=== PATIENT | female | born 1935 | race Caucasian/White ===

== ENCOUNTER → 2016-04-22 | Outpatient (REF) | payer MEDICARE ==
[2016-04-22 14:08] LABS: BASO % 0.5 % (0.0-1.0); EOS # 0.3 K/mm3 (0.0-0.50); EOS % 2.9 % (0.0-3.0); LARGE UNSTAINED CELL # 0.1 K/mm3 (0.0-0.4); LARGE UNSTAINED CELL % 1.3 % (0.0-4.0); LYMPH # 1.5 K/mm3 (1.5-4.5); LYMPH % 14.8 % (24.0-44.0); MEAN CORPUSCULAR HGB CONC 30.1 g/dl (32.0-36.5); MEAN CORPUSCULAR VOLUME 86.4 fl (80.0-96.0); MONO # 0.5 K/mm3 (0.0-0.8); MONO % 4.6 % (0.0-5.0); NEUTROPHILS # 7.6 K/mm3 (1.8-7.7); NEUTROPHILS % 75.9 % (36.0-66.0); PLATELET COUNT, AUTOMATED 250 k/mm3 (150-450); RED CELL DISTRIBUTION WIDTH 13.9 % (11.5-14.5)
[2016-04-22 14:24] LABS: ALBUMIN/GLOBULIN RATIO 1.08 (1.00-1.93); BILIRUBIN,TOTAL 0.3 MG/DL (0.2-1.0); CALCIUM LEVEL 10.2 MG/DL (8.8-10.2); CREATININE FOR GFR 0.96 MG/DL (0.55-1.02); GLOMERULAR FILTRATION RATE 59.5 (>32); POTASSIUM SERUM 4.4 MEQ/L (3.5-5.1); TOTAL PROTEIN 7.7 GM/DL (6.4-8.2)
== END ==
LOC: M LABNEURO 13:11
PROVIDERS: ATTEND Psychiatry & Neurology Neurology
DX: R51 Headache (principal)

== ENCOUNTER → 2017-02-10 | Outpatient (REF) | payer MEDICARE | LOC: M LAB REF 17:13 | PROVIDERS: ATTEND Ophthalmology | DX: H02.831 Dermatochalasis of right upper eyelid (principal); H02.834 Dermatochalasis of left upper eyelid ==

== ENCOUNTER 2017-05-26 13:06 | Day surgery (SDC) | payer MEDICARE ==
[~2017-05-26 13:06] MED LIST: LIDOCAINE 1% MDV 20ML VIAL As Ordered; PROPOFOL 200 MG/20 ML VIAL As Ordered
[2017-05-26] MEDS: NS 1,000 ML IV (13:30)
[2017-05-26] MEDS ORDERED: ACETAMINOPHEN TAB 650MG DOSE (2X325MG) As Ordered (14:51)
[2017-05-26] MEDS: ACETAMINOPHEN TAB 650MG DOSE (2X325MG) PO (15:02)
== END 2017-05-26 15:24 | disposition home or self-care (01) ==
LOC: M OPP 13:06
DX: K57.33 Diverticulitis of large intestine without perforation or abscess with bleeding (principal); K64.0 First degree hemorrhoids; K57.30 Diverticulosis of large intestine without perforation or abscess without bleeding; I10 Essential (primary) hypertension; E78.5 Hyperlipidemia, unspecified; E11.9 Type 2 diabetes mellitus without complications; K44.9 Diaphragmatic hernia without obstruction or gangrene; K21.9 Gastro-esophageal reflux disease without esophagitis; R12 Heartburn; M19.90 Unspecified osteoarthritis, unspecified site; R51 Headache; I63.9 Cerebral infarction, unspecified; Z96.651 Presence of right artificial knee joint; Z88.5 Allergy status to narcotic agent; Z79.82 Long term (current) use of aspirin; Z79.84 Long term (current) use of oral hypoglycemic drugs; Z79.899 Other long term (current) drug therapy; Z87.891 Personal history of nicotine dependence
CPT/HCPCS: 45378

== ENCOUNTER → 2023-09-27 | Outpatient (REF) ==
[~2023-09-27] MED LIST changes: +ACID1CAP PO; +AMLO1TAB25 PO; +ASPI81TA86 PO; +GLIP10TA6 PO; +JANU100T PO; -LIDOCAINE 1% MDV 20ML VIAL As Ordered; +MECL-86 PO; +MELO7.5T7 PO; +METF-415 PO; +OMEP1CAP73 PO; +PRAV40TA2 PO; -PROPOFOL 200 MG/20 ML VIAL As Ordered
[2023-09-27 11:21] LABS: HEMATOCRIT 34.9 % (36.0-47.0); HEMOGLOBIN 10.8 g/dl (12.0-15.5); MEAN CORPUSCULAR HGB CONC 30.9 g/dl (32.0-36.5); MEAN CORPUSCULAR VOLUME 93.8 fl (80.0-96.0); PLATELET COUNT, AUTOMATED 283 10^3/uL (150-450); RED BLOOD COUNT 3.72 10^6/uL (4.00-5.40); WHITE BLOOD COUNT 11.7 10^3/uL (4.0-10.0)
[2023-09-27 11:50] LABS: CALCIUM LEVEL 10.4 MG/DL (8.3-10.6); CREATININE FOR GFR 1.53 MG/DL (0.55-1.30); GLOMERULAR FILTRATION RATE 34.2 (>32); POTASSIUM SERUM 4.6 MMOL/L (3.5-5.1)
== END ==
PROVIDERS: ATTEND Physician Assistant
DX: I10 Essential (primary) hypertension (principal)

== ENCOUNTER → 2023-09-28 | Outpatient (REF) ==
[2023-09-28 18:21] LABS: BASO # 0.1 10^3/uL (0.0-0.2); BASO % 0.9 % (0.0-1.0); EOS # 0.3 10^3/uL (0.0-0.5); EOS % 2.4 % (0.0-3.0); HEMATOCRIT 32.4 % (36.0-47.0); HEMOGLOBIN 9.8 g/dl (12.0-15.5); LYMPH # 1.4 10^3/uL (1.5-5.0); LYMPH % 12.3 % (24.0-44.0); MEAN CORPUSCULAR HEMOGLOBIN 28.7 pg (27.0-33.0); MEAN CORPUSCULAR HGB CONC 30.2 g/dl (32.0-36.5); MONO # 0.9 10^3/uL (0.0-0.8); MONO % 8.3 % (2.0-8.0); NEUTROPHILS # 8.6 10^3/uL (1.5-8.5); NEUTROPHILS % 75.8 % (36.0-66.0); PLATELET COUNT, AUTOMATED 249 10^3/uL (150-450); RED BLOOD COUNT 3.41 10^6/uL (4.00-5.40); WHITE BLOOD COUNT 11.3 10^3/uL (4.0-10.0)
[2023-09-28 18:40] LABS: CREATININE FOR GFR 1.52 MG/DL (0.55-1.30); GLOMERULAR FILTRATION RATE 34.4 (>32); POTASSIUM SERUM 4.9 MMOL/L (3.5-5.1)
== END ==
PROVIDERS: ATTEND Physician Assistant
DX: R06.02 Shortness of breath (principal)

== ENCOUNTER → 2023-09-29 | Outpatient (REF) | payer MEDICARE | PROVIDERS: ATTEND Internal Medicine | DX: R05.9 Cough, unspecified (principal) ==

== ENCOUNTER → 2023-10-04 | Outpatient (REF) ==
[2023-10-04 15:27] LABS: HEMATOCRIT 32.7 % (36.0-47.0); HEMOGLOBIN 9.8 g/dl (12.0-15.5); MEAN CORPUSCULAR HEMOGLOBIN 28.4 pg (27.0-33.0); MEAN CORPUSCULAR VOLUME 94.8 fl (80.0-96.0); PLATELET COUNT, AUTOMATED 285 10^3/uL (150-450); RED BLOOD COUNT 3.45 10^6/uL (4.00-5.40); WHITE BLOOD COUNT 8.2 10^3/uL (4.0-10.0)
[2023-10-04 15:50] LABS: CALCIUM LEVEL 10.4 MG/DL (8.3-10.6); CREATININE FOR GFR 1.36 MG/DL (0.55-1.30); GLOMERULAR FILTRATION RATE 39.2 (>32); POTASSIUM SERUM 5.2 MMOL/L (3.5-5.1)
== END ==
PROVIDERS: ATTEND Physician Assistant
DX: I10 Essential (primary) hypertension (principal)

== ENCOUNTER → 2023-10-11 | Outpatient (REF) ==
[2023-10-11 11:12] LABS: APPEARANCE, URINE HAZY (CLEAR); BACTERIA, URINE AUTO NEGATIVE (NEGATIVE); BILIRUBIN, URINE AUTO NEGATIVE (NEGATIVE); BLOOD, URINE BLOOD NEGATIVE (NEGATIVE); COLOR, URINE YELLOW (YELLOW); GLUCOSE, URINE (UA) AUTO NEGATIVE (NEGATIVE); KETONE, URINE AUTO NEGATIVE (NEGATIVE); LEUKOCYTE ESTERASE, URINE AUTO NEGATIVE (NEGATIVE); NITRITE, URINE AUTO NEGATIVE (NEGATIVE); PROTEIN, URINE AUTO 1+ mg/dL (NEGATIVE); RBC, URINE AUTO 1 /HPF (0-3); SPECIFIC GRAVITY URINE AUTO 1.013 (1.002-1.035); SQUAMOUS EPITHELIAL CELL UR AU 2 /HPF (0-6); UROBILINOGEN, URINE AUTO 0.2 mg/dL (0.0-2.0); WBC, URINE AUTO 2 /HPF (0-3)
[2023-10-11 11:26] LABS: HEMATOCRIT 30.4 % (36.0-47.0); HEMOGLOBIN 9.2 g/dl (12.0-15.5); MEAN CORPUSCULAR HEMOGLOBIN 28.8 pg (27.0-33.0); MEAN CORPUSCULAR HGB CONC 30.3 g/dl (32.0-36.5); PLATELET COUNT, AUTOMATED 365 10^3/uL (150-450); WHITE BLOOD COUNT 6.8 10^3/uL (4.0-10.0)
[2023-10-11 11:43] LABS: CREATININE FOR GFR 1.47 MG/DL (0.55-1.30); GLOMERULAR FILTRATION RATE 35.8 (>32)
== END ==
PROVIDERS: ATTEND Physician Assistant
DX: I10 Essential (primary) hypertension (principal); R82.998 Other abnormal findings in urine

== ENCOUNTER 2023-10-17 13:14 | Inpatient (IN) | payer MEDICARE ==
[~2023-10-17] VITALS: Ht 160 cm; Wt 51.8 kg
[2023-10-17] MEDS: fentaNYL 100 MCG/2 ML INJECTION IV PRN (14:30)
[2023-10-17 14:34] LABS: BASO # 0.1 10^3/uL (0.0-0.2); BASO % 0.5 % (0.0-1.0); EOS # 0.1 10^3/uL (0.0-0.5); HEMATOCRIT 28.8 % (36.0-47.0); HEMOGLOBIN 8.7 g/dl (12.0-15.5); LYMPH # 1.6 10^3/uL (1.5-5.0); LYMPH % 12.5 % (24.0-44.0); MEAN CORPUSCULAR HEMOGLOBIN 28.8 pg (27.0-33.0); MEAN CORPUSCULAR HGB CONC 30.2 g/dl (32.0-36.5); MEAN CORPUSCULAR VOLUME 95.4 fl (80.0-96.0); MONO # 0.8 10^3/uL (0.0-0.8); MONO % 6.7 % (2.0-8.0); NEUTROPHILS # 9.7 10^3/uL (1.5-8.5); NEUTROPHILS % 78.7 % (36.0-66.0); PLATELET COUNT, AUTOMATED 354 10^3/uL (150-450); RED BLOOD COUNT 3.02 10^6/uL (4.00-5.40); WHITE BLOOD COUNT 12.4 10^3/uL (4.0-10.0)
[2023-10-17 14:49] LABS: INR 1.15; PARTIAL THROMBOPLASTIN TIME 25.2 SECONDS (24.8-34.2); PROTHROMBIN TIME 14.4 SECONDS (12.5-14.5)
[2023-10-17] MEDS: ONDANSETRON 4MG 2ML VIAL IV ONE (15:02)
[2023-10-17 15:03] LABS: LIPASE 110 U/L (12-53)
[2023-10-17 15:04] LABS: AMYLASE 112 U/L (30-118)
[2023-10-17 15:05] LABS: ALBUMIN 3.2 G/DL (3.2-5.2); ALKALINE PHOSPHATASE 99 U/L (46-116); ALT/SGPT 14 U/L (7.0-40); AST/SGOT 12 U/L (<34); BILIRUBIN,DIRECT < 0.1 MG/DL (<0.4); BILIRUBIN,TOTAL 0.2 MG/DL (0.3-1.2); BLOOD UREA NITROGEN 53 MG/DL (9-23); CALCIUM LEVEL 10.6 MG/DL (8.3-10.6); CARBON DIOXIDE LEVEL 25 MMOL/L (20-31); CHLORIDE LEVEL 107 MMOL/L (98-107); CK-MB VALUE MASS 1.3 NG/ML (<3.6); CPK CREATINE PHOSPHOKINASE 25 U/L (34-145); CREATININE FOR GFR 1.48 MG/DL (0.55-1.30); GLOMERULAR FILTRATION RATE 35.5 (>32); GLUCOSE, FASTING 135 MG/DL (74-106); POTASSIUM SERUM 4.8 MMOL/L (3.5-5.1); SODIUM LEVEL 137 MMOL/L (136-145); TOTAL PROTEIN 6.3 G/DL (5.7-8.2)
[2023-10-17] MEDS ORDERED: GLUCOSE 4 GM CHEW PO PRN (16:35)
[2023-10-17] MEDS ORDERED: DEXTROSE 50% 50ML SYRINGE IV PRN (16:35)
[2023-10-17] MEDS ORDERED: GLUCAGON INJ 1MG VIAL SC PRN (16:35)
[2023-10-17] MEDS ORDERED: ACETAMINOPHEN 500 MG TAB PO SCH (18:00)
[2023-10-17] MEDS ORDERED: PROB250C PO (18:34)
[2023-10-17] MEDS ORDERED: LIDO1PAD TOP (18:52)
[2023-10-17] MEDS ORDERED: CLOP75TA2 PO (18:52)
[2023-10-17] MEDS ORDERED: LEXA5TAB13 PO (18:52)
[2023-10-17] MEDS ORDERED: METO1TAB32 PO (18:52)
[2023-10-17] MEDS ORDERED: BISA10SU PR (18:52)
[2023-10-17] MEDS ORDERED: MILK400S12 PO (18:52)
[2023-10-17] MEDS ORDERED: CALC500T60 PO (18:52)
[2023-10-17] MEDS ORDERED: FLEEENE12 PR (18:52)
[2023-10-17] MEDS ORDERED: NOVOINJ3 SQ (18:52)
[2023-10-17] MEDS ORDERED: PANT-23 PO (18:52)
[2023-10-17] MEDS ORDERED: MAGN400T2 PO (18:52)
[2023-10-17] MEDS ORDERED: ISOS1TAB36 PO (18:52)
[2023-10-17] MEDS ORDERED: ECOT81TA5 PO (18:52)
[2023-10-17] MEDS ORDERED: ACET1TAB55 PO (18:52)
[2023-10-17] MEDS ORDERED: GLUC1KIT IM (18:52)
[2023-10-17] MEDS ORDERED: HOME MED LIST COMPLETE! XX SCH (18:55)
[2023-10-17] MEDS: INSULIN LISPRO (NovoLOG) PER UNIT SC SCH ×2 (19:29→21:00)
[2023-10-17] MEDS: ACETAMINOPHEN 500 MG TAB PO ONE (19:30)
[2023-10-17] MEDS: PRAVASTATIN 20 MG TAB PO SCH (21:24)
[2023-10-17] MEDS: MECLIZINE 25 MG TABLET PO SCH (21:24)
[2023-10-17] MEDS: traMADol 50 MG TAB PO PRN (21:25)
[2023-10-18] MEDS: ACETAMINOPHEN 500 MG TAB PO SCH
[2023-10-18] MEDS: ASPIRIN 81MG CHEW TABLET PO SCH (08:28)
[2023-10-18] MEDS: traMADol 50 MG TAB PO PRN (08:29)
[2023-10-18] MEDS: OMEPRAZOLE 20MG CAP PO SCH (08:29)
[2023-10-18 08:30] VITALS: BP 144/66
[2023-10-18] MEDS ORDERED: ACET-683 PO (13:41)
[2023-10-18] MEDS ORDERED: TRAM50TA2 PO (13:41)
[2023-10-18] MEDS ORDERED: traMADol 50 MG TAB PO ONE (14:00)
[2023-10-18 14:26] VITALS: BP 118/56; TEMP 97.5; O2SAT 91
== END 2023-10-18 14:35 | disposition home or self-care (01) | DRG 93 ==
LOC: M ED 13:14 → EDBD 13:14 → M ED INP 16:25
PROVIDERS: ADMIT General Practice; ATTEND General Practice
DX: R29.6 Repeated falls (principal); Z66 Do not resuscitate; E11.9 Type 2 diabetes mellitus without complications; I10 Essential (primary) hypertension; E78.00 Pure hypercholesterolemia, unspecified; Z88.5 Allergy status to narcotic agent; Z91.013 Allergy to seafood; Z96.651 Presence of right artificial knee joint; Z79.84 Long term (current) use of oral hypoglycemic drugs; Z79.01 Long term (current) use of anticoagulants; Z79.899 Other long term (current) drug therapy; S70.02XA Contusion of left hip, initial encounter; S40.022A Contusion of left upper arm, initial encounter; S00.83XA Contusion of other part of head, initial encounter; W19.XXXA Unspecified fall, initial encounter; Y92.9 Unspecified place or not applicable; Y93.9 Activity, unspecified; Z86.73 Personal history of transient ischemic attack (TIA), and cerebral infarction without residual deficits

== ENCOUNTER → 2023-10-25 | Outpatient (REF) | payer MEDICARE ==
[~2023-10-25] MED LIST changes: +ACET-683 PO; +ACET1TAB55 PO; +BISA10SU PR; +CALC500T60 PO; +CLOP75TA2 PO; +ECOT81TA5 PO; +FLEEENE12 PR; +GLUC1KIT IM; +ISOS1TAB36 PO; +LEXA5TAB13 PO; +LIDO1PAD TOP; +MAGN400T2 PO; +METO1TAB32 PO; +MILK400S12 PO; +NOVOINJ3 SQ; +PANT-23 PO; +PROB250C PO; +TRAM50TA2 PO
== END ==
LOC: M SOG 09:00 → EDSTATUS 10-26 07:32
PROVIDERS: ATTEND Physician Assistant
DX: M25.512 Pain in left shoulder (principal); M25.522 Pain in left elbow; M25.532 Pain in left wrist

== ENCOUNTER → 2023-10-28 | Outpatient (REF) | PROVIDERS: ATTEND Internal Medicine | DX: M85.872 Other specified disorders of bone density and structure, left ankle and foot (principal) ==

== ENCOUNTER → 2023-11-01 | Outpatient (REF) ==
[~2023-11-01] MED LIST changes: +ACET-907 PO; +AMLO2.5T3 PO; +ANTI2TAB16 PO; +CEPH500C PO; +GLIP-162 PO; +NOVOINJ3 SC; -NOVOINJ3 SQ; +ONDA-83 PO; +TUMS500C PO
[2023-11-01 12:18] LABS: HEMATOCRIT 29.6 % (36.0-47.0); HEMOGLOBIN 8.4 g/dl (12.0-15.5); MEAN CORPUSCULAR HEMOGLOBIN 27.2 pg (27.0-33.0); MEAN CORPUSCULAR HGB CONC 28.4 g/dl (32.0-36.5); MEAN CORPUSCULAR VOLUME 95.8 fl (80.0-96.0); PLATELET COUNT, AUTOMATED 446 10^3/uL (150-450); RED BLOOD COUNT 3.09 10^6/uL (4.00-5.40); WHITE BLOOD COUNT 9.9 10^3/uL (4.0-10.0)
[2023-11-01 12:54] LABS: FERRITIN 114.3 NG/ML (7.3-270.7)
[2023-11-01 12:55] LABS: CALCIUM LEVEL 10.1 MG/DL (8.3-10.6); CREATININE FOR GFR 1.64 MG/DL (0.55-1.30); FOLATE 6.6 NG/ML (>5.4); GLOMERULAR FILTRATION RATE 31.5 (>32); PERCENT SATURATION 11.2 % (13.2-45.0); POTASSIUM SERUM 4.3 MMOL/L (3.5-5.1)
== END ==
PROVIDERS: ATTEND Internal Medicine
DX: D64.9 Anemia, unspecified (principal)

== ENCOUNTER 2023-11-02 21:15 | Observation (INO) | payer MEDICARE, MEDICAID ==
[~2023-11-02] VITALS: Ht 160 cm; Wt 56.8 kg
[~2023-11-02 21:15] MED LIST changes: -ACET-907 PO; -AMLO2.5T3 PO; -ANTI2TAB16 PO; -CEPH500C PO; -GLIP-162 PO; -ONDA-83 PO; -TUMS500C PO
[2023-11-02 21:56] LABS: BASO # 0.1 10^3/uL (0.0-0.2); BASO % 0.6 % (0.0-1.0); EOS # 0.2 10^3/uL (0.0-0.5); EOS % 1.7 % (0.0-3.0); HEMATOCRIT 25.3 % (36.0-47.0); HEMOGLOBIN 7.7 g/dl (12.0-15.5); LYMPH # 1.6 10^3/uL (1.5-5.0); LYMPH % 17.5 % (24.0-44.0); MEAN CORPUSCULAR HEMOGLOBIN 28.6 pg (27.0-33.0); MEAN CORPUSCULAR HGB CONC 30.4 g/dl (32.0-36.5); MEAN CORPUSCULAR VOLUME 94.1 fl (80.0-96.0); MONO # 0.7 10^3/uL (0.0-0.8); MONO % 7.2 % (2.0-8.0); NEUTROPHILS # 6.6 10^3/uL (1.5-8.5); NEUTROPHILS % 72.4 % (36.0-66.0); PLATELET COUNT, AUTOMATED 385 10^3/uL (150-450); RED BLOOD COUNT 2.69 10^6/uL (4.00-5.40)
[2023-11-02 22:13] LABS: INR 1.16; PARTIAL THROMBOPLASTIN TIME 24.9 SECONDS (24.8-34.2); PROTHROMBIN TIME 14.4 SECONDS (12.5-14.5)
[2023-11-02 22:26] LABS: ALKALINE PHOSPHATASE 92 U/L (46-116); ALT/SGPT 12 U/L (7.0-40); AST/SGOT 13 U/L (<34); BILIRUBIN,DIRECT < 0.1 MG/DL (<0.4); BILIRUBIN,TOTAL 0.2 MG/DL (0.3-1.2); BLOOD UREA NITROGEN 49 MG/DL (9-23); CARBON DIOXIDE LEVEL 25 MMOL/L (20-31); CHLORIDE LEVEL 104 MMOL/L (98-107); CREATININE FOR GFR 1.59 MG/DL (0.55-1.30); GLOMERULAR FILTRATION RATE 32.6 (>32); GLUCOSE, FASTING 119 MG/DL (74-106); POTASSIUM SERUM 4.7 MMOL/L (3.5-5.1); SODIUM LEVEL 134 MMOL/L (136-145); TOTAL PROTEIN 6.3 G/DL (5.7-8.2)
[2023-11-02] MEDS: PANTOPRAZOLE 40MG VIAL IV ONE (22:33)
[2023-11-03] VITALS (10 sets, daily range): BP systolic 134–151; BP diastolic 61–76; TEMP 97–98.1; O2SAT 92–97
[2023-11-03] MEDS ORDERED: DEXTROSE 50% 50ML SYRINGE IV PRN
[2023-11-03] MEDS ORDERED: MAALOX 30 ML SUSP *UDC PO PRN
[2023-11-03] MEDS ORDERED: GLUCOSE 4 GM CHEW PO PRN
[2023-11-03] MEDS ORDERED: MOM 30ML SUSPENSION UDC PO PRN
[2023-11-03] MEDS ORDERED: GLUCAGON INJ 1MG VIAL SC PRN
[2023-11-03] MEDS ORDERED: TUMS500C PO (00:20)
[2023-11-03] MEDS ORDERED: TRAM50TA2 PO (00:20)
[2023-11-03] MEDS ORDERED: ONDA-83 PO (00:20)
[2023-11-03] MEDS ORDERED: ANTI2TAB16 PO (00:20)
[2023-11-03] MEDS ORDERED: AMLO2.5T3 PO (00:20)
[2023-11-03] MEDS ORDERED: GLIP-162 PO (00:20)
[2023-11-03] MEDS ORDERED: CEPH500C PO (00:20)
[2023-11-03] MEDS ORDERED: ACET-907 PO (00:24)
[2023-11-03] MEDS ORDERED: HOME MED LIST COMPLETE! XX SCH (00:30)
[2023-11-03 00:50] LABS: MAGNESIUM LEVEL 1.6 MG/DL (1.8-2.4)
[2023-11-03 00:55] LABS: THYROID STIMULATING HORMONE 2.073 uIU/ML (0.55-4.78)
[2023-11-03] MEDS: MAG SULF 1GM/100ML (MAG RUN) 1 GM in IV 1 EA IV ONE (03:51)
[2023-11-03 04:30] LABS: BASO # 0.1 10^3/uL (0.0-0.2); BASO % 0.8 % (0.0-1.0); EOS # 0.2 10^3/uL (0.0-0.5); EOS % 2.4 % (0.0-3.0); HEMATOCRIT 34.2 % (36.0-47.0); LYMPH # 2.1 10^3/uL (1.5-5.0); LYMPH % 20.7 % (24.0-44.0); MEAN CORPUSCULAR VOLUME 90.5 fl (80.0-96.0); MONO # 0.8 10^3/uL (0.0-0.8); NEUTROPHILS # 6.7 10^3/uL (1.5-8.5); NEUTROPHILS % 67.7 % (36.0-66.0); PLATELET COUNT, AUTOMATED 350 10^3/uL (150-450); RED BLOOD COUNT 3.78 10^6/uL (4.00-5.40); WHITE BLOOD COUNT 9.9 10^3/uL (4.0-10.0)
[2023-11-03 04:45] LABS: INR 1.15; PARTIAL THROMBOPLASTIN TIME 26.3 SECONDS (24.8-34.2); PROTHROMBIN TIME 14.3 SECONDS (12.5-14.5)
[2023-11-03 04:54] LABS: HEMOGLOBIN 10.6 g/dl (12.0-15.5)
[2023-11-03 05:02] LABS: ALBUMIN 2.8 G/DL (3.2-5.2); ALKALINE PHOSPHATASE 91 U/L (46-116); ALT/SGPT < 9 U/L (7.0-40); AST/SGOT 9 U/L (<34); BILIRUBIN,TOTAL 0.8 MG/DL (0.3-1.2); BLOOD UREA NITROGEN 44 MG/DL (9-23); CALCIUM LEVEL 10.5 MG/DL (8.3-10.6); CARBON DIOXIDE LEVEL 24 MMOL/L (20-31); CHLORIDE LEVEL 109 MMOL/L (98-107); CREATININE FOR GFR 1.53 MG/DL (0.55-1.30); GLOMERULAR FILTRATION RATE 34.1 (>32); GLUCOSE, FASTING 82 MG/DL (74-106); MAGNESIUM LEVEL 1.8 MG/DL (1.8-2.4); POTASSIUM SERUM 4.7 MMOL/L (3.5-5.1); SODIUM LEVEL 139 MMOL/L (136-145)
[2023-11-03] MEDS: INSULIN LISPRO (NovoLOG) PER UNIT SC SCH ×2 (07:29→20:42)
[2023-11-03] MEDS: PANTOPRAZOLE 40MG VIAL IV SCH (07:49)
[2023-11-03] MEDS: DOCUSATE SODIUM 100MG CAPSULE PO SCH (07:49)
[2023-11-03] MEDS: ACETAMINOPHEN TAB 650MG DOSE (2X325MG) PO PRN (12:33)
[2023-11-03] MEDS ORDERED: BISACODYL 10MG SUPP PR PRN (12:40)
[2023-11-03] MEDS ORDERED: CALCIUM CARBONATE 500 MG CHEW U/D PO PRN (12:40)
[2023-11-03] MEDS ORDERED: LOPERAMIDE 2 MG CAPLET PO PRN (12:40)
[2023-11-03 12:55] LABS: HEMATOCRIT 35.9 % (36.0-47.0); HEMOGLOBIN 11.1 g/dl (12.0-15.5)
[2023-11-03] MEDS: ESCITALOPRAM OXALATE 5MG TABLET (LEXAPRO) PO SCH (13:33)
[2023-11-03] MEDS: METOPROLOL SUCC *XL* 25MG TAB (TopROL *XL*) PO SCH (13:36)
[2023-11-03] MEDS: ISOSORBIDE MON. (IMDUR) 60MG XR TAB PO SCH (13:38)
[2023-11-03] MEDS: traMADol 50 MG TAB PO PRN (14:16)
[2023-11-03] MEDS: ONDANSETRON 4MG TAB PO SCH (16:00)
[2023-11-03] MEDS: MAGNESIUM OXIDE 400MG TAB (MAG-OX) PO SCH (20:41)
[2023-11-03] MEDS: PRAVASTATIN 20 MG TAB PO SCH (20:41)
[2023-11-03] MEDS: CEPHALEXIN 500 MG CAP PO SCH (20:42)
[2023-11-04 04:35] VITALS: BP 143/66; TEMP 97.7; O2SAT 92
[2023-11-04 08:39] VITALS: BP 145/63
[2023-11-04] MEDS ORDERED: LIDOCAINE 5% (LIDODERM) PATCH TOP SCH (09:00)
== END 2023-11-04 13:30 ==
LOC: M ED 21:15 → INTOOBSV 23:28 → M ED INP 23:28 → M MS5PR 11-03 10:05
PROVIDERS: ADMIT Family Medicine; ATTEND Student in an Organized Health Care Education/Training Program
DX: D62 Acute posthemorrhagic anemia (principal); K92.2 Gastrointestinal hemorrhage, unspecified; D58.2 Other hemoglobinopathies; S62.102D Fracture of unspecified carpal bone, left wrist, subsequent encounter for fracture with routine healing; M79.602 Pain in left arm; W19.XXXD Unspecified fall, subsequent encounter; X58.XXXD Exposure to other specified factors, subsequent encounter; R94.31 Abnormal electrocardiogram [ECG] [EKG]; R54 Age-related physical debility; I25.10 Atherosclerotic heart disease of native coronary artery without angina pectoris; I10 Essential (primary) hypertension; E78.5 Hyperlipidemia, unspecified; E11.9 Type 2 diabetes mellitus without complications; K57.92 Diverticulitis of intestine, part unspecified, without perforation or abscess without bleeding; Z86.73 Personal history of transient ischemic attack (TIA), and cerebral infarction without residual deficits; I65.29 Occlusion and stenosis of unspecified carotid artery; Z87.81 Personal history of (healed) traumatic fracture; Z96.651 Presence of right artificial knee joint; Z98.890 Other specified postprocedural states; Z87.891 Personal history of nicotine dependence; Z79.899 Other long term (current) drug therapy; Z79.82 Long term (current) use of aspirin; Z79.2 Long term (current) use of antibiotics; Z79.02 Long term (current) use of antithrombotics/antiplatelets; Z79.4 Long term (current) use of insulin; Z88.5 Allergy status to narcotic agent; Z88.8 Allergy status to other drugs, medicaments and biological substances; Z91.013 Allergy to seafood
CPT/HCPCS: 36415; 36430; 80048; 80053; 80076; 82140; 83735; 84443; 85014; 85018; 85025; 85610; 85730; 86850; 86900; 86901; 86920; 87426; 93005; 93041; 94760; 96365; 96375; 96376; 97161; 97530; 99285; G0378; J1815; J2470; J3475; P9016

== ENCOUNTER → 2023-11-03 | Outpatient (REF) ==
[~2023-11-03] MED LIST changes: +ACET-907 PO; +AMLO2.5T3 PO; +ANTI2TAB16 PO; +CEPH500C PO; +GLIP-162 PO; +ONDA-83 PO; +TUMS500C PO
== END ==
PROVIDERS: ATTEND Physician Assistant
DX: E86.0 Dehydration (principal); Z53.8 Procedure and treatment not carried out for other reasons

== ENCOUNTER → 2023-11-05 | Outpatient (REF) ==
[~2023-11-05] MED LIST changes: +BACI1CAP PO; +CEFD300CAP PO; +CIPR-250 PO
== END ==
PROVIDERS: ATTEND Internal Medicine
DX: K92.2 Gastrointestinal hemorrhage, unspecified (principal); Z53.8 Procedure and treatment not carried out for other reasons

== ENCOUNTER → 2023-11-08 | Outpatient (REF) ==
[2023-11-08 11:37] LABS: HEMOGLOBIN 11.4 g/dl (12.0-15.5); MEAN CORPUSCULAR HEMOGLOBIN 27.7 pg (27.0-33.0); MEAN CORPUSCULAR VOLUME 92.5 fl (80.0-96.0); PLATELET COUNT, AUTOMATED 327 10^3/uL (150-450); RED BLOOD COUNT 4.11 10^6/uL (4.00-5.40); WHITE BLOOD COUNT 6.6 10^3/uL (4.0-10.0)
[2023-11-08 11:56] LABS: CALCIUM LEVEL 10.6 MG/DL (8.3-10.6); CREATININE FOR GFR 1.6 MG/DL (0.55-1.30); GLOMERULAR FILTRATION RATE 32.4 (>32); POTASSIUM SERUM 4.6 MMOL/L (3.5-5.1)
== END ==
PROVIDERS: ATTEND Internal Medicine
DX: K92.2 Gastrointestinal hemorrhage, unspecified (principal)

== ENCOUNTER 2023-11-12 09:15 | Inpatient (IN) | payer MEDICARE ==
[~2023-11-12] VITALS: Ht 157.5 cm; Wt 61.8 kg
[2023-11-12] MEDS: cloNIDine HCL 0.1 MG/24 HR PATCH TOP SCH (09:00)
[~2023-11-12 09:15] MED LIST changes: -BACI1CAP PO; -CEFD300CAP PO; -CIPR-250 PO
[2023-11-12] MEDS ORDERED: CIPR-250 PO (10:00)
[2023-11-12] MEDS ORDERED: HOME MED LIST COMPLETE! XX SCH (10:05)
[2023-11-12 10:21] LABS: VENOUS BASE EXCESS -1.7 (-2.0-2.0); VENOUS O2 SATURATION 99.3 % (60.0-80.0); VENOUS PARTIAL PRESSURE O2 211.6 mmHg (30.0-50.0); VENOUS PH 7.316 UNITS (7.330-7.430); VENOUS STANDARD HCO3 23.1 MMOL/L; VENOUS TOTAL CO2 26.5 MMOL/L (24.0-28.0)
[2023-11-12] MEDS ORDERED: ISOVUE-370 76% 100ML VIAL As Ordered ONE (10:21)
[2023-11-12 10:27] LABS: BASO % 0.3 % (0.0-1.0); HEMATOCRIT 40.4 % (36.0-47.0); HEMOGLOBIN 12.3 g/dl (12.0-15.5); LYMPH # 0.4 10^3/uL (1.5-5.0); MEAN CORPUSCULAR HEMOGLOBIN 27.6 pg (27.0-33.0); MEAN CORPUSCULAR HGB CONC 30.4 g/dl (32.0-36.5); MEAN CORPUSCULAR VOLUME 90.8 fl (80.0-96.0); MONO # 0.2 10^3/uL (0.0-0.8); MONO % 2.4 % (2.0-8.0); NEUTROPHILS # 5.6 10^3/uL (1.5-8.5); NEUTROPHILS % 89.8 % (36.0-66.0); PLATELET COUNT, AUTOMATED 292 10^3/uL (150-450); RED BLOOD COUNT 4.45 10^6/uL (4.00-5.40); WHITE BLOOD COUNT 6.3 10^3/uL (4.0-10.0)
[2023-11-12 11:06] LABS: OSMOLALITY SERUM 308 MOSM/KG (280-301)
[2023-11-12 11:08] LABS: ALBUMIN 3.3 G/DL (3.2-5.2); ALKALINE PHOSPHATASE 103 U/L (46-116); ALT/SGPT 11 U/L (7.0-40); AST/SGOT 15 U/L (<34); BILIRUBIN,DIRECT < 0.1 MG/DL (<0.4); BILIRUBIN,TOTAL 0.2 MG/DL (0.3-1.2); BLOOD UREA NITROGEN 33 MG/DL (9-23); CALCIUM LEVEL 10.2 MG/DL (8.3-10.6); CARBON DIOXIDE LEVEL 27 MMOL/L (20-31); CHLORIDE LEVEL 104 MMOL/L (98-107); CREATININE FOR GFR 1.47 MG/DL (0.55-1.30); GLOMERULAR FILTRATION RATE 35.7 (>32); GLUCOSE, FASTING 181 MG/DL (74-106); POTASSIUM SERUM 4.8 MMOL/L (3.5-5.1); SODIUM LEVEL 135 MMOL/L (136-145)
[2023-11-12 11:11] LABS: THYROID STIMULATING HORMONE 0.954 uIU/ML (0.55-4.78)
[2023-11-12] MEDS: METOPROLOL 5 MG/5 ML VIAL IV STA (13:01)
[2023-11-12] MEDS: LACTULOSE 20GM/30ML SYRUP UDC PR ONE (13:19)
[2023-11-12 14:27] LABS: HEMOGLOBIN A1c 5.4 % (4.0-6.0)
[2023-11-12 14:28] LABS: C REACTIVE PROTEIN QUANTITATIV 3.9 MG/DL (<1.0)
[2023-11-12 14:32] LABS: FREE THYROXINE INDEX 3.9 % (1.3-4.8); T UPTAKE 41.9 % (22.5-37.0); THYROID STIMULATING HORMONE 0.889 uIU/ML (0.55-4.78); THYROXINE (T4) 9.2 UG/DL (4.5-10.9)
[2023-11-12] MEDS: NITROGLYCERIN 2% OINT 1 GM *U/D* PKT TOP ONE (14:38)
[2023-11-12] MEDS: ONDANSETRON 4MG 2ML VIAL IV SCH (14:38)
[2023-11-12 14:41] LABS: PROCALCITONIN 0.27 ng/ml
[2023-11-12 15:15] VITALS: BP 154/66; TEMP 98.1; O2SAT 94
[2023-11-12] MEDS ORDERED: CALCIUM CARBONATE 500 MG CHEW U/D PO PRN (15:15)
[2023-11-12] MEDS: CLOPIDOGREL 75 MG TAB PO SCH (15:50)
[2023-11-12] MEDS: ASPIRIN 81MG CHEW TABLET PO SCH (15:50)
[2023-11-12] MEDS: ISOSORBIDE MON. (IMDUR) 60MG XR TAB PO SCH (15:50)
[2023-11-12] MEDS: CEFDINIR 300 MG CAP (OMNICEF) PO SCH (18:17)
[2023-11-12] MEDS: SUCRALFATE SUSP 1GM/10ML UD PO SCH (18:18)
[2023-11-12 20:00] VITALS: BP 130/67; TEMP 97.9; O2SAT 94
[2023-11-12] MEDS: PANTOPRAZOLE 40MG TAB (PROTONIX) PO SCH (20:53)
[2023-11-13] MEDS ORDERED: RAMELTEON 8 MG TAB (ROZEREM) PO PRN (00:40)
[2023-11-13] MEDS: HALOPERIDOL LACTATE 5MG/ML VIAL IM ONE (01:07)
[2023-11-13 04:00] VITALS: BP 116/56; TEMP 97.7; O2SAT 97
[2023-11-13 07:35] LABS: BASO % 0.4 % (0.0-1.0); EOS % 0.1 % (0.0-3.0); LYMPH % 12.4 % (24.0-44.0); MEAN CORPUSCULAR HEMOGLOBIN 27.8 pg (27.0-33.0); MEAN CORPUSCULAR HGB CONC 30.7 g/dl (32.0-36.5); MEAN CORPUSCULAR VOLUME 90.6 fl (80.0-96.0); MONO # 0.5 10^3/uL (0.0-0.8); MONO % 6.4 % (2.0-8.0); NEUTROPHILS # 6.6 10^3/uL (1.5-8.5); NEUTROPHILS % 80.2 % (36.0-66.0); PLATELET COUNT, AUTOMATED 246 10^3/uL (150-450); RED BLOOD COUNT 3.31 10^6/uL (4.00-5.40); WHITE BLOOD COUNT 8.2 10^3/uL (4.0-10.0)
[2023-11-13 07:39] LABS: HEMOGLOBIN 9.2 g/dl (12.0-15.5)
[2023-11-13 07:54] LABS: CALCIUM LEVEL 9.7 MG/DL (8.3-10.6); CREATININE FOR GFR 1.63 MG/DL (0.55-1.30); GLOMERULAR FILTRATION RATE 31.7 (>32); POTASSIUM SERUM 4.7 MMOL/L (3.5-5.1)
[2023-11-13] MEDS: METOPROLOL SUCC *XL* 25MG TAB (TopROL *XL*) PO SCH (08:08)
[2023-11-13] MEDS: FENOFIBRATE 145MG TABLET (TRICOR) PO SCH (08:08)
[2023-11-13] MEDS: ONDANSETRON 4MG 2ML VIAL IV PRN (08:12)
[2023-11-13 12:29] VITALS: BP 100/44; TEMP 97.7; O2SAT 98
[2023-11-13 20:00] VITALS: BP 124/51; TEMP 97.9
[2023-11-14 04:00] VITALS: BP 134/60; TEMP 97.3; O2SAT 95
[2023-11-14 06:56] LABS: BASO # 0.1 10^3/uL (0.0-0.2); BASO % 1.4 % (0.0-1.0); EOS # 0.1 10^3/uL (0.0-0.5); EOS % 2.2 % (0.0-3.0); HEMATOCRIT 34.5 % (36.0-47.0); HEMOGLOBIN 10.5 g/dl (12.0-15.5); LYMPH # 1.1 10^3/uL (1.5-5.0); LYMPH % 18.5 % (24.0-44.0); MEAN CORPUSCULAR HEMOGLOBIN 27.7 pg (27.0-33.0); MEAN CORPUSCULAR HGB CONC 30.4 g/dl (32.0-36.5); MONO # 0.6 10^3/uL (0.0-0.8); MONO % 10.3 % (2.0-8.0); NEUTROPHILS # 3.9 10^3/uL (1.5-8.5); NEUTROPHILS % 67.3 % (36.0-66.0); PLATELET COUNT, AUTOMATED 219 10^3/uL (150-450); RED BLOOD COUNT 3.79 10^6/uL (4.00-5.40); WHITE BLOOD COUNT 5.9 10^3/uL (4.0-10.0)
[2023-11-14] MEDS ORDERED: BACI1CAP PO (07:08)
[2023-11-14] MEDS ORDERED: CEFD300CAP PO (07:08)
[2023-11-14 07:20] LABS: CREATININE FOR GFR 1.75 MG/DL (0.55-1.30); GLOMERULAR FILTRATION RATE 29.2 (>32); POTASSIUM SERUM 4.4 MMOL/L (3.5-5.1)
[2023-11-14 12:42] VITALS: BP 125/54; TEMP 97.5; O2SAT 97
[2023-11-14] MEDS: ACETAMINOPHEN 500 MG TAB PO ONE (14:31)
[2023-11-14 20:24] VITALS: BP 116/61; TEMP 97.7; O2SAT 95
[2023-11-14] MEDS: ACETAMINOPHEN TAB 650MG DOSE (2X325MG) PO PRN (22:23)
[2023-11-15 03:51] VITALS: BP 126/36; TEMP 97.5; O2SAT 96
[2023-11-15 06:28] LABS: BASO # 0.1 10^3/uL (0.0-0.2); BASO % 1.5 % (0.0-1.0); EOS # 0.3 10^3/uL (0.0-0.5); EOS % 4.8 % (0.0-3.0); HEMATOCRIT 35.5 % (36.0-47.0); HEMOGLOBIN 10.9 g/dl (12.0-15.5); LYMPH # 1.4 10^3/uL (1.5-5.0); LYMPH % 23.5 % (24.0-44.0); MEAN CORPUSCULAR HEMOGLOBIN 27.5 pg (27.0-33.0); MEAN CORPUSCULAR HGB CONC 30.7 g/dl (32.0-36.5); MEAN CORPUSCULAR VOLUME 89.6 fl (80.0-96.0); MONO # 0.6 10^3/uL (0.0-0.8); MONO % 9.5 % (2.0-8.0); NEUTROPHILS # 3.6 10^3/uL (1.5-8.5); NEUTROPHILS % 60.4 % (36.0-66.0); PLATELET COUNT, AUTOMATED 253 10^3/uL (150-450); RED BLOOD COUNT 3.96 10^6/uL (4.00-5.40)
[2023-11-15 08:30] VITALS: O2SAT 87
[2023-11-15 08:40] VITALS: O2SAT 98
[2023-11-15 12:00] VITALS: BP 109/46; TEMP 95.6; O2SAT 98
[2023-11-15 20:12] VITALS: BP 136/56; TEMP 97.3; O2SAT 97
[2023-11-16 05:14] VITALS: BP 152/62; TEMP 97.7; O2SAT 90
[2023-11-16 05:55] LABS: BASO # 0.1 10^3/uL (0.0-0.2); BASO % 1.2 % (0.0-1.0); EOS # 0.4 10^3/uL (0.0-0.5); EOS % 7.1 % (0.0-3.0); HEMATOCRIT 40.2 % (36.0-47.0); HEMOGLOBIN 12.3 g/dl (12.0-15.5); LYMPH # 1.6 10^3/uL (1.5-5.0); LYMPH % 27.8 % (24.0-44.0); MEAN CORPUSCULAR HEMOGLOBIN 27.6 pg (27.0-33.0); MEAN CORPUSCULAR HGB CONC 30.6 g/dl (32.0-36.5); MEAN CORPUSCULAR VOLUME 90.1 fl (80.0-96.0); MONO # 0.5 10^3/uL (0.0-0.8); MONO % 8.1 % (2.0-8.0); NEUTROPHILS # 3.3 10^3/uL (1.5-8.5); NEUTROPHILS % 55.6 % (36.0-66.0); PLATELET COUNT, AUTOMATED 256 10^3/uL (150-450); RED BLOOD COUNT 4.46 10^6/uL (4.00-5.40); WHITE BLOOD COUNT 5.9 10^3/uL (4.0-10.0)
[2023-11-16 07:50] VITALS: BP 152/62
[2023-11-16 08:38] LABS: CALCIUM LEVEL 10.3 MG/DL (8.3-10.6); CREATININE FOR GFR 1.67 MG/DL (0.55-1.30); GLOMERULAR FILTRATION RATE 30.8 (>32); POTASSIUM SERUM 3.8 MMOL/L (3.5-5.1)
== END 2023-11-16 12:20 | DRG 441 ==
LOC: EDBD 09:15 → M ED 09:15 → M ED INP 12:31 → M MS5PR 15:10
PROVIDERS: ADMIT General Practice; ATTEND Family Medicine
DX: K76.82 Hepatic encephalopathy (principal); G93.41 Metabolic encephalopathy; J18.9 Pneumonia, unspecified organism; J98.11 Atelectasis; E87.1 Hypo-osmolality and hyponatremia; E72.20 Disorder of urea cycle metabolism, unspecified; J47.0 Bronchiectasis with acute lower respiratory infection; Z66 Do not resuscitate; N18.30 Chronic kidney disease, stage 3 unspecified; E11.22 Type 2 diabetes mellitus with diabetic chronic kidney disease; I12.9 Hypertensive chronic kidney disease with stage 1 through stage 4 chronic kidney disease, or unspecified chronic kidney disease; E78.00 Pure hypercholesterolemia, unspecified; I73.9 Peripheral vascular disease, unspecified; E11.51 Type 2 diabetes mellitus with diabetic peripheral angiopathy without gangrene; R26.89 Other abnormalities of gait and mobility; R29.6 Repeated falls; K44.9 Diaphragmatic hernia without obstruction or gangrene; I16.0 Hypertensive urgency; D64.9 Anemia, unspecified; Z86.73 Personal history of transient ischemic attack (TIA), and cerebral infarction without residual deficits; Z95.828 Presence of other vascular implants and grafts; Z79.82 Long term (current) use of aspirin; Z79.84 Long term (current) use of oral hypoglycemic drugs; Z79.4 Long term (current) use of insulin; Z79.899 Other long term (current) drug therapy; Z88.5 Allergy status to narcotic agent; Z88.8 Allergy status to other drugs, medicaments and biological substances; Z91.013 Allergy to seafood; Z11.52 Encounter for screening for COVID-19

== ENCOUNTER → 2023-11-15 | Outpatient (REF) ==
[~2023-11-15] MED LIST changes: +BACI1CAP PO; +CEFD300CAP PO; +CIPR-250 PO
== END ==
PROVIDERS: ATTEND Internal Medicine
DX: K92.2 Gastrointestinal hemorrhage, unspecified (principal); Z53.8 Procedure and treatment not carried out for other reasons

== ENCOUNTER → 2023-11-17 | Outpatient (REF) ==
[2023-11-17 09:01] LABS: HEMATOCRIT 38.5 % (36.0-47.0); HEMOGLOBIN 11.8 g/dl (12.0-15.5); MEAN CORPUSCULAR HEMOGLOBIN 27.4 pg (27.0-33.0); MEAN CORPUSCULAR HGB CONC 30.6 g/dl (32.0-36.5); MEAN CORPUSCULAR VOLUME 89.3 fl (80.0-96.0); PLATELET COUNT, AUTOMATED 310 10^3/uL (150-450); RED BLOOD COUNT 4.31 10^6/uL (4.00-5.40); WHITE BLOOD COUNT 9.6 10^3/uL (4.0-10.0)
[2023-11-17 09:26] LABS: CALCIUM LEVEL 10.7 MG/DL (8.3-10.6); CREATININE FOR GFR 1.47 MG/DL (0.55-1.30); GLOMERULAR FILTRATION RATE 35.7 (>32); POTASSIUM SERUM 4.1 MMOL/L (3.5-5.1)
[2023-11-17 18:50] LABS: ALBUMIN 3.2 G/DL (3.2-5.2); ALKALINE PHOSPHATASE 85 U/L (46-116); ALT/SGPT < 9 U/L (7.0-40); AST/SGOT 16 U/L (<34); BILIRUBIN,DIRECT < 0.1 MG/DL (<0.4); BILIRUBIN,TOTAL 0.2 MG/DL (0.3-1.2); TOTAL PROTEIN 6.5 G/DL (5.7-8.2)
== END ==
PROVIDERS: ATTEND Physician Assistant
DX: D64.9 Anemia, unspecified (principal)

== ENCOUNTER → 2023-11-22 | Outpatient (REF) ==
[2023-11-22 11:09] LABS: HEMOGLOBIN 11.4 g/dl (12.0-15.5); MEAN CORPUSCULAR HGB CONC 30.8 g/dl (32.0-36.5); MEAN CORPUSCULAR VOLUME 90.9 fl (80.0-96.0); PLATELET COUNT, AUTOMATED 310 10^3/uL (150-450); RED BLOOD COUNT 4.07 10^6/uL (4.00-5.40); WHITE BLOOD COUNT 7.9 10^3/uL (4.0-10.0)
[2023-11-22 11:28] LABS: CALCIUM LEVEL 10.3 MG/DL (8.3-10.6); CREATININE FOR GFR 1.54 MG/DL (0.55-1.30); GLOMERULAR FILTRATION RATE 33.8 (>32); POTASSIUM SERUM 4.2 MMOL/L (3.5-5.1)
== END ==
PROVIDERS: ATTEND Internal Medicine
DX: I10 Essential (primary) hypertension (principal)

== ENCOUNTER → 2023-11-25 | Outpatient (CLI) | payer MEDICARE | LOC: M SOG 07:56 | PROVIDERS: ATTEND Physician Assistant | DX: S52.322A Displaced transverse fracture of shaft of left radius, initial encounter for closed fracture (principal); M25.532 Pain in left wrist; M25.552 Pain in left hip; Y93.9 Activity, unspecified; Y92.9 Unspecified place or not applicable ==

== ENCOUNTER → 2023-11-29 | Outpatient (REF) ==
[2023-11-29 12:31] LABS: HEMATOCRIT 36.8 % (36.0-47.0); MEAN CORPUSCULAR HEMOGLOBIN 27.6 pg (27.0-33.0); MEAN CORPUSCULAR HGB CONC 29.9 g/dl (32.0-36.5); MEAN CORPUSCULAR VOLUME 92.2 fl (80.0-96.0); PLATELET COUNT, AUTOMATED 324 10^3/uL (150-450); RED BLOOD COUNT 3.99 10^6/uL (4.00-5.40); WHITE BLOOD COUNT 9.7 10^3/uL (4.0-10.0)
[2023-11-29 12:57] LABS: CALCIUM LEVEL 10.2 MG/DL (8.3-10.6); CREATININE FOR GFR 1.45 MG/DL (0.55-1.30); GLOMERULAR FILTRATION RATE 36.3 (>32); POTASSIUM SERUM 4.6 MMOL/L (3.5-5.1)
== END ==
PROVIDERS: ATTEND Internal Medicine
DX: K92.2 Gastrointestinal hemorrhage, unspecified (principal)

== ENCOUNTER → 2023-12-08 | Outpatient (REF) | PROVIDERS: ATTEND Physician Assistant | DX: R11.10 Vomiting, unspecified (principal) ==

== ENCOUNTER → 2023-12-09 | Outpatient (REF) | PROVIDERS: ATTEND Physician Assistant | DX: R19.7 Diarrhea, unspecified (principal) ==

== ENCOUNTER → 2023-12-15 | Outpatient (REF) | payer MEDICARE | LOC: M RAD 11:08 → EDSTATUS 11:45 | PROVIDERS: ATTEND Physician Assistant | DX: E04.2 Nontoxic multinodular goiter (principal) ==

== ENCOUNTER → 2023-12-22 | Outpatient (REF) ==
[2023-12-22 10:49] LABS: HEMATOCRIT 38.1 % (36.0-47.0); HEMOGLOBIN 11.4 g/dl (12.0-15.5); MEAN CORPUSCULAR HEMOGLOBIN 26.8 pg (27.0-33.0); MEAN CORPUSCULAR HGB CONC 29.9 g/dl (32.0-36.5); MEAN CORPUSCULAR VOLUME 89.4 fl (80.0-96.0); PLATELET COUNT, AUTOMATED 348 10^3/uL (150-450); RED BLOOD COUNT 4.26 10^6/uL (4.00-5.40); WHITE BLOOD COUNT 7.9 10^3/uL (4.0-10.0)
[2023-12-22 11:25] LABS: CALCIUM LEVEL 10.3 MG/DL (8.3-10.6); CREATININE FOR GFR 2.02 MG/DL (0.55-1.30); GLOMERULAR FILTRATION RATE 24.7 (>32); POTASSIUM SERUM 4.9 MMOL/L (3.5-5.1)
== END ==
PROVIDERS: ATTEND Internal Medicine
DX: K92.2 Gastrointestinal hemorrhage, unspecified (principal)

== ENCOUNTER → 2023-12-27 | Outpatient (REF) ==
[2023-12-27 21:23] LABS: CALCIUM LEVEL 9.9 MG/DL (8.3-10.6); CREATININE FOR GFR 2.05 MG/DL (0.55-1.30); GLOMERULAR FILTRATION RATE 24.3 (>32); POTASSIUM SERUM 5.9 MMOL/L (3.5-5.1)
== END ==
PROVIDERS: ATTEND Physician Assistant
DX: N18.9 Chronic kidney disease, unspecified (principal)

== ENCOUNTER → 2023-12-29 | Outpatient (REF) ==
[2023-12-29 13:31] LABS: CALCIUM LEVEL 10.3 MG/DL (8.3-10.6); CREATININE FOR GFR 1.95 MG/DL (0.55-1.30); GLOMERULAR FILTRATION RATE 25.8 (>32); POTASSIUM SERUM 4.8 MMOL/L (3.5-5.1)
== END ==
PROVIDERS: ATTEND Physician Assistant
DX: E87.5 Hyperkalemia (principal)

== ENCOUNTER → 2024-01-13 | Outpatient (REF) | payer MEDICARE ==
[~2024-01-13] MED LIST changes: +GLIP10TA15 PO; -GLIP10TA6 PO
== END ==
LOC: M RAD 11:33 → EDSTATUS 12:00
PROVIDERS: ATTEND Physician Assistant
DX: E04.1 Nontoxic single thyroid nodule (principal)

== ENCOUNTER → 2024-01-26 | Outpatient (REF) ==
[2024-01-26 10:14] LABS: HEMATOCRIT 33.4 % (36.0-47.0); MEAN CORPUSCULAR HEMOGLOBIN 26.4 pg (27.0-33.0); MEAN CORPUSCULAR HGB CONC 29.9 g/dl (32.0-36.5); MEAN CORPUSCULAR VOLUME 88.1 fl (80.0-96.0); PLATELET COUNT, AUTOMATED 360 10^3/uL (150-450); RED BLOOD COUNT 3.79 10^6/uL (4.00-5.40); WHITE BLOOD COUNT 9.8 10^3/uL (4.0-10.0)
[2024-01-26 10:34] LABS: CALCIUM LEVEL 10.3 MG/DL (8.3-10.6); CREATININE FOR GFR 2.13 MG/DL (0.55-1.30); GLOMERULAR FILTRATION RATE 23.3 (>32); POTASSIUM SERUM 4.5 MMOL/L (3.5-5.1)
== END ==
PROVIDERS: ATTEND Internal Medicine
DX: K92.2 Gastrointestinal hemorrhage, unspecified (principal)

== ENCOUNTER → 2024-02-10 | Outpatient (REF) | payer MEDICARE, MEDICAID ==
[~2024-02-10] MED LIST changes: +GABA-1171 PO
[2024-02-10 14:48] LABS: HEMATOCRIT 29.7 % (36.0-47.0); HEMOGLOBIN 8.8 g/dl (12.0-15.5); MEAN CORPUSCULAR HEMOGLOBIN 26.3 pg (27.0-33.0); MEAN CORPUSCULAR HGB CONC 29.6 g/dl (32.0-36.5); MEAN CORPUSCULAR VOLUME 88.7 fl (80.0-96.0); PLATELET COUNT, AUTOMATED 344 10^3/uL (150-450); RED BLOOD COUNT 3.35 10^6/uL (4.00-5.40); WHITE BLOOD COUNT 5.5 10^3/uL (4.0-10.0)
[2024-02-10 14:54] LABS: CALCIUM LEVEL 10.2 MG/DL (8.3-10.6); CREATININE FOR GFR 2.18 MG/DL (0.55-1.30); GLOMERULAR FILTRATION RATE 22.7 (>32); POTASSIUM SERUM 5.1 MMOL/L (3.5-5.1)
== END ==
PROVIDERS: ATTEND Internal Medicine
DX: Z01.818 Encounter for other preprocedural examination (principal)

== ENCOUNTER → 2024-02-23 | Outpatient (REF) | payer MEDICARE, MEDICAID ==
[2024-02-23 11:17] LABS: HEMATOCRIT 30.5 % (36.0-47.0); MEAN CORPUSCULAR HEMOGLOBIN 26.4 pg (27.0-33.0); MEAN CORPUSCULAR HGB CONC 29.5 g/dl (32.0-36.5); MEAN CORPUSCULAR VOLUME 89.4 fl (80.0-96.0); PLATELET COUNT, AUTOMATED 369 10^3/uL (150-450); RED BLOOD COUNT 3.41 10^6/uL (4.00-5.40); WHITE BLOOD COUNT 7.1 10^3/uL (4.0-10.0)
[2024-02-23 11:56] LABS: CALCIUM LEVEL 10.8 MG/DL (8.3-10.6); CREATININE FOR GFR 2.36 MG/DL (0.55-1.30); GLOMERULAR FILTRATION RATE 20.7 (>32); POTASSIUM SERUM 4.6 MMOL/L (3.5-5.1)
== END ==
PROVIDERS: ATTEND Physician Assistant
DX: K92.2 Gastrointestinal hemorrhage, unspecified (principal)

== ENCOUNTER → 2024-03-20 | Outpatient (REF) | payer MEDICARE, MEDICAID ==
[2024-03-20 10:27] LABS: HEMATOCRIT 25.8 % (36.0-47.0); HEMOGLOBIN 7.5 g/dl (12.0-15.5); MEAN CORPUSCULAR HEMOGLOBIN 27.2 pg (27.0-33.0); MEAN CORPUSCULAR HGB CONC 29.1 g/dl (32.0-36.5); MEAN CORPUSCULAR VOLUME 93.5 fl (80.0-96.0); PLATELET COUNT, AUTOMATED 315 10^3/uL (150-450); RED BLOOD COUNT 2.76 10^6/uL (4.00-5.40); WHITE BLOOD COUNT 5.3 10^3/uL (4.0-10.0)
[2024-03-20 10:57] LABS: CALCIUM LEVEL 9.9 MG/DL (8.3-10.6); CREATININE FOR GFR 2.59 MG/DL (0.55-1.30); GLOMERULAR FILTRATION RATE 18.6 (>32); POTASSIUM SERUM 5.1 MMOL/L (3.5-5.1)
== END ==
PROVIDERS: ATTEND Internal Medicine
DX: K92.2 Gastrointestinal hemorrhage, unspecified (principal)

== ENCOUNTER 2024-03-21 06:37 | Outpatient (CLI) | payer MEDICARE, MEDICAID ==
[2024-03-21] MEDS ORDERED: NS (Normal Saline) 0.9% 250 ML IV ONE (07:00)
[2024-03-21] MEDS ORDERED: ACETAMINOPHEN 325 MG TAB PO ONE (07:00)
[2024-03-21] MEDS: diphenhydrAMINE 25MG CAP PO ONE (07:07)
[2024-03-21 07:18] VITALS: BP 157/74; O2SAT 97
[2024-03-21 07:45] VITALS: BP 158/78; TEMP 97.6; O2SAT 97
[2024-03-21 09:00] VITALS: BP 158/74; TEMP 98.3; O2SAT 97
[2024-03-21 09:25] VITALS: BP 148/88; TEMP 97.7; O2SAT 97
[2024-03-21 09:55] VITALS: BP 151/67; TEMP 97.8; O2SAT 97
[2024-03-21 11:25] VITALS: BP 132/63; TEMP 98.3; O2SAT 98
== END 2024-03-21 11:55 ==
LOC: M INFU 06:37
PROVIDERS: ATTEND Physician Assistant
DX: D64.9 Anemia, unspecified (principal); Z88.5 Allergy status to narcotic agent; Z88.8 Allergy status to other drugs, medicaments and biological substances
CPT/HCPCS: 36430; 82270; P9016

== ENCOUNTER → 2024-03-21 | Outpatient (REF) | payer MEDICARE, MEDICAID | PROVIDERS: ATTEND Physician Assistant | DX: D64.9 Anemia, unspecified (principal) ==

== ENCOUNTER → 2024-03-22 | Outpatient (REF) | payer MEDICARE, MEDICAID ==
[2024-03-22 10:07] LABS: HEMATOCRIT 34.8 % (36.0-47.0); MEAN CORPUSCULAR HEMOGLOBIN 27.5 pg (27.0-33.0); MEAN CORPUSCULAR HGB CONC 30.7 g/dl (32.0-36.5); MEAN CORPUSCULAR VOLUME 89.5 fl (80.0-96.0); PLATELET COUNT, AUTOMATED 368 10^3/uL (150-450); RED BLOOD COUNT 3.89 10^6/uL (4.00-5.40); WHITE BLOOD COUNT 7.6 10^3/uL (4.0-10.0)
[2024-03-22 10:11] LABS: HEMOGLOBIN 10.7 g/dl (12.0-15.5)
[2024-03-22 10:12] LABS: PERCENT SATURATION 27.9 % (13.2-45.0)
[2024-03-22 10:13] LABS: FERRITIN 117.8 NG/ML (7.3-270.7)
[2024-03-22 10:14] LABS: FOLATE 15.87 NG/ML (>5.4)
== END ==
PROVIDERS: ATTEND Internal Medicine
DX: D64.9 Anemia, unspecified (principal)

== ENCOUNTER → 2024-03-27 | Outpatient (REF) | payer MEDICARE, MEDICAID ==
[2024-03-27 09:42] LABS: MEAN CORPUSCULAR HEMOGLOBIN 27.2 pg (27.0-33.0); MEAN CORPUSCULAR HGB CONC 29.4 g/dl (32.0-36.5); MEAN CORPUSCULAR VOLUME 92.6 fl (80.0-96.0); PLATELET COUNT, AUTOMATED 324 10^3/uL (150-450); RED BLOOD COUNT 3.67 10^6/uL (4.00-5.40); WHITE BLOOD COUNT 5.5 10^3/uL (4.0-10.0)
== END ==
PROVIDERS: ATTEND Physician Assistant
DX: D64.9 Anemia, unspecified (principal)

== ENCOUNTER → 2024-04-03 | Outpatient (REF) | payer MEDICARE, MEDICAID ==
[2024-04-03 10:20] LABS: HEMOGLOBIN 8.7 g/dl (12.0-15.5); MEAN CORPUSCULAR HEMOGLOBIN 27.5 pg (27.0-33.0); MEAN CORPUSCULAR VOLUME 91.8 fl (80.0-96.0); PLATELET COUNT, AUTOMATED 256 10^3/uL (150-450); RED BLOOD COUNT 3.16 10^6/uL (4.00-5.40); WHITE BLOOD COUNT 4.9 10^3/uL (4.0-10.0)
== END ==
PROVIDERS: ATTEND Physician Assistant
DX: D64.9 Anemia, unspecified (principal)

== ENCOUNTER → 2024-04-10 | Outpatient (REF) | payer MEDICARE, MEDICAID ==
[2024-04-10 11:16] LABS: BASO # 0.1 10^3/uL (0.0-0.2); BASO % 0.9 % (0.0-1.0); EOS # 0.2 10^3/uL (0.0-0.5); EOS % 3.8 % (0.0-3.0); HEMATOCRIT 30.7 % (36.0-47.0); LYMPH # 0.9 10^3/uL (1.5-5.0); MEAN CORPUSCULAR HEMOGLOBIN 26.8 pg (27.0-33.0); MEAN CORPUSCULAR HGB CONC 29.3 g/dl (32.0-36.5); MEAN CORPUSCULAR VOLUME 91.4 fl (80.0-96.0); MONO # 0.4 10^3/uL (0.0-0.8); MONO % 6.6 % (2.0-8.0); NEUTROPHILS % 72.3 % (36.0-66.0); PLATELET COUNT, AUTOMATED 292 10^3/uL (150-450); RED BLOOD COUNT 3.36 10^6/uL (4.00-5.40); WHITE BLOOD COUNT 5.6 10^3/uL (4.0-10.0)
[2024-04-10 11:31] LABS: ALBUMIN 3.3 G/DL (3.2-5.2); CALCIUM LEVEL 10.4 MG/DL (8.3-10.6); CREATININE FOR GFR 2.35 MG/DL (0.55-1.30); GLOMERULAR FILTRATION RATE 20.8 (>32); POTASSIUM SERUM 4.5 MMOL/L (3.5-5.1)
[2024-04-10 11:32] LABS: PERCENT SATURATION 7.4 % (13.2-45.0); PTH INTACT 219.9 PG/ML (18.5-88.0)
[2024-04-10 18:50] LABS: APPEARANCE, URINE CLEAR (CLEAR); BACTERIA, URINE AUTO NEGATIVE (NEGATIVE); BILIRUBIN, URINE AUTO NEGATIVE (NEGATIVE); BLOOD, URINE BLOOD NEGATIVE (NEGATIVE); COLOR, URINE YELLOW (YELLOW); GLUCOSE, URINE (UA) AUTO NEGATIVE (NEGATIVE); KETONE, URINE AUTO NEGATIVE (NEGATIVE); LEUKOCYTE ESTERASE, URINE AUTO NEGATIVE (NEGATIVE); NITRITE, URINE AUTO NEGATIVE (NEGATIVE); PROTEIN, URINE AUTO 1+ mg/dL (NEGATIVE); RBC, URINE AUTO 0 /HPF (0-3); SQUAMOUS EPITHELIAL CELL UR AU 1 /HPF (0-6); UROBILINOGEN, URINE AUTO 0.2 mg/dL (0.0-2.0); WBC, URINE AUTO 1 /HPF (0-3)
== END ==
PROVIDERS: ATTEND Physician Assistant
DX: D64.9 Anemia, unspecified (principal)

== ENCOUNTER → 2024-04-17 | Outpatient (REF) | payer MEDICARE, MEDICAID ==
[2024-04-17 11:01] LABS: BASO # 0.1 10^3/uL (0.0-0.2); BASO % 1.4 % (0.0-1.0); EOS # 0.2 10^3/uL (0.0-0.5); EOS % 4.2 % (0.0-3.0); HEMATOCRIT 27.3 % (36.0-47.0); LYMPH # 0.9 10^3/uL (1.5-5.0); MEAN CORPUSCULAR HEMOGLOBIN 27.6 pg (27.0-33.0); MEAN CORPUSCULAR HGB CONC 29.3 g/dl (32.0-36.5); MEAN CORPUSCULAR VOLUME 94.1 fl (80.0-96.0); MONO # 0.4 10^3/uL (0.0-0.8); MONO % 7.2 % (2.0-8.0); NEUTROPHILS # 3.5 10^3/uL (1.5-8.5); NEUTROPHILS % 68.8 % (36.0-66.0); PLATELET COUNT, AUTOMATED 301 10^3/uL (150-450)
[2024-04-17 11:03] LABS: PERCENT SATURATION 9.6 % (13.2-45.0)
[2024-04-17 11:04] LABS: ALBUMIN 3.1 G/DL (3.2-5.2); CREATININE FOR GFR 2.34 MG/DL (0.55-1.30); GLOMERULAR FILTRATION RATE 20.9 (>32); PHOSPHORUS LEVEL 3.9 MG/DL (2.4-5.1); POTASSIUM SERUM 4.2 MMOL/L (3.5-5.1)
== END ==
PROVIDERS: ATTEND Physician Assistant
DX: D64.9 Anemia, unspecified (principal)

== ENCOUNTER → 2024-04-24 | Outpatient (REF) | payer MEDICARE, MEDICAID ==
[2024-04-24 12:04] LABS: HEMATOCRIT 25.7 % (36.0-47.0); HEMOGLOBIN 7.4 g/dl (12.0-15.5); MEAN CORPUSCULAR HGB CONC 28.8 g/dl (32.0-36.5); MEAN CORPUSCULAR VOLUME 93.8 fl (80.0-96.0); PLATELET COUNT, AUTOMATED 296 10^3/uL (150-450); RED BLOOD COUNT 2.74 10^6/uL (4.00-5.40); WHITE BLOOD COUNT 5.3 10^3/uL (4.0-10.0)
== END ==
PROVIDERS: ATTEND Physician Assistant
DX: D64.9 Anemia, unspecified (principal)

== ENCOUNTER → 2024-04-26 | Outpatient (REF) | payer MEDICARE, MEDICAID ==
[~2024-04-26] MED LIST changes: +METO1TAB7 PO
[2024-04-26 15:51] LABS: HEMOGLOBIN 7.1 g/dl (12.0-15.5); MEAN CORPUSCULAR HEMOGLOBIN 27.7 pg (27.0-33.0); MEAN CORPUSCULAR HGB CONC 29.6 g/dl (32.0-36.5); MEAN CORPUSCULAR VOLUME 93.8 fl (80.0-96.0); PLATELET COUNT, AUTOMATED 287 10^3/uL (150-450); RED BLOOD COUNT 2.56 10^6/uL (4.00-5.40); WHITE BLOOD COUNT 5.9 10^3/uL (4.0-10.0)
[2024-04-26 16:31] LABS: CALCIUM LEVEL 9.7 MG/DL (8.3-10.6); CREATININE FOR GFR 2.74 MG/DL (0.55-1.30); GLOMERULAR FILTRATION RATE 17.4 (>32); POTASSIUM SERUM 4.9 MMOL/L (3.5-5.1)
== END ==
PROVIDERS: ATTEND Internal Medicine
DX: K92.2 Gastrointestinal hemorrhage, unspecified (principal)

== ENCOUNTER 2024-04-27 10:08 | Outpatient (CLI) | payer MEDICARE, MEDICAID ==
[2024-04-27] VITALS (7 sets, daily range): BP systolic 114–151; BP diastolic 56–73; TEMP 97–98.1; O2SAT 95–98
[~2024-04-27] VITALS: Ht 160 cm; Wt 50.0 kg
[2024-04-27] MEDS: ACETAMINOPHEN 650 MG PO ONE (11:46)
[2024-04-27] MEDS: diphenhydrAMINE 25MG CAP PO ONE (11:46)
== END 2024-04-27 15:00 ==
LOC: M INFU 10:08
PROVIDERS: ATTEND Physician Assistant
DX: D64.9 Anemia, unspecified (principal); Z88.5 Allergy status to narcotic agent; Z88.8 Allergy status to other drugs, medicaments and biological substances
CPT/HCPCS: 36430; P9016

== ENCOUNTER → 2024-04-28 | Outpatient (REF) | payer MEDICARE, MEDICAID ==
[~2024-04-28] MED LIST changes: +ARTIDRO4 OU; +BISA10SU4 PR; +CALC1CAP31 PO; +CALC500T61 PO; +COLA100C5 PO; +LACT20EL PO; +LEXA1TAB2 PO; +MOM30SS2 PO; +SUCR1TA PO
[2024-04-28 07:34] LABS: MEAN CORPUSCULAR HGB CONC 31.9 g/dl (32.0-36.5); MEAN CORPUSCULAR VOLUME 90.7 fl (80.0-96.0); PLATELET COUNT, AUTOMATED 243 10^3/uL (150-450); RED BLOOD COUNT 3.45 10^6/uL (4.00-5.40); WHITE BLOOD COUNT 5.3 10^3/uL (4.0-10.0)
[2024-04-28 07:38] LABS: HEMATOCRIT 31.3 % (36.0-47.0)
== END ==
PROVIDERS: ATTEND Physician Assistant
DX: D64.9 Anemia, unspecified (principal)

== ENCOUNTER 2024-04-30 11:43 | Observation (INO) | payer MEDICARE, MEDICAID ==
[~2024-04-30] VITALS: Ht 154.9 cm; Wt 56.3 kg
[~2024-04-30 11:43] MED LIST changes: -ARTIDRO4 OU; -BISA10SU4 PR; -CALC1CAP31 PO; -CALC500T61 PO; -COLA100C5 PO; -LACT20EL PO; -LEXA1TAB2 PO; -MOM30SS2 PO; -SUCR1TA PO
[2024-04-30] MEDS: LIDOCAINE 2% 5ML JELLY UROJET TOP ONE (11:55)
[2024-04-30 12:17] LABS: BASO # 0.1 10^3/uL (0.0-0.2); BASO % 1.4 % (0.0-1.0); EOS # 0.3 10^3/uL (0.0-0.5); EOS % 3.9 % (0.0-3.0); HEMATOCRIT 32.9 % (36.0-47.0); HEMOGLOBIN 10.2 g/dl (12.0-15.5); LYMPH # 1.4 10^3/uL (1.5-5.0); LYMPH % 22.6 % (24.0-44.0); MEAN CORPUSCULAR HEMOGLOBIN 28.7 pg (27.0-33.0); MEAN CORPUSCULAR VOLUME 92.7 fl (80.0-96.0); MONO # 0.5 10^3/uL (0.0-0.8); MONO % 7.1 % (2.0-8.0); NEUTROPHILS # 4.1 10^3/uL (1.5-8.5); NEUTROPHILS % 64.7 % (36.0-66.0); PLATELET COUNT, AUTOMATED 266 10^3/uL (150-450); RED BLOOD COUNT 3.55 10^6/uL (4.00-5.40); WHITE BLOOD COUNT 6.4 10^3/uL (4.0-10.0)
[2024-04-30 12:37] LABS: INR 1.25
[2024-04-30 12:42] LABS: KETONE, URINE AUTO RFX NEGATIVE (NEGATIVE); LEUKOCYTE ESTERASE UR AUTO RFX NEGATIVE (NEGATIVE); NITRITE, URINE AUTO RFX NEGATIVE (NEGATIVE); RBC, URINE AUTO RFX 2 /HPF (0-3); SQUAM EPITHELIAL CELL UR AURFX 0 /HPF (0-6); WBC, URINE AUTO RFX 0 /HPF (0-3)
[2024-04-30 12:46] LABS: LIPASE 82 U/L (12-53)
[2024-04-30] MEDS ORDERED: SUCR1TA PO (12:46)
[2024-04-30] MEDS ORDERED: FLEEENE12 PR (12:46)
[2024-04-30] MEDS ORDERED: ARTIDRO4 OU (12:46)
[2024-04-30] MEDS ORDERED: BISA10SU4 PR (12:46)
[2024-04-30] MEDS ORDERED: MOM30SS2 PO (12:46)
[2024-04-30] MEDS ORDERED: LEXA1TAB2 PO (12:46)
[2024-04-30] MEDS ORDERED: CALC1CAP31 PO (12:46)
[2024-04-30] MEDS ORDERED: CALC500T61 PO (12:46)
[2024-04-30 12:47] LABS: AMYLASE 93 U/L (30-118)
[2024-04-30 12:48] LABS: ALKALINE PHOSPHATASE 85 U/L (35-104); ALT/SGPT < 9 U/L (7.0-40); AST/SGOT 8 U/L (<34); BILIRUBIN,DIRECT < 0.1 MG/DL (<0.4); BILIRUBIN,TOTAL 0.2 MG/DL (0.3-1.2); BLOOD UREA NITROGEN 73 MG/DL (9-23); CARBON DIOXIDE LEVEL 20 MMOL/L (20-31); CHLORIDE LEVEL 108 MMOL/L (98-107); CK-MB VALUE MASS < 1.0 NG/ML (<3.6); CREATININE FOR GFR 2.41 MG/DL (0.55-1.30); GLOMERULAR FILTRATION RATE 20.2 (>32); GLUCOSE, FASTING 150 MG/DL (74-106); POTASSIUM SERUM 4.5 MMOL/L (3.5-5.1); SODIUM LEVEL 141 MMOL/L (136-145); TOTAL PROTEIN 6.3 G/DL (5.7-8.2)
[2024-04-30] MEDS ORDERED: HOME MED LIST COMPLETE! XX SCH (12:50)
[2024-04-30 13:12] LABS: CPK CREATINE PHOSPHOKINASE 37 U/L (34-145); PROCALCITONIN 0.06 ng/ml
[2024-04-30] MEDS: NS 500 ML IV ONE (13:21)
[2024-04-30] MEDS: ONDANSETRON 4MG 2ML VIAL IV ONE (13:21)
[2024-04-30 13:42] LABS: CK-MB VALUE MASS < 1.0 NG/ML (<3.6)
[2024-04-30 13:48] LABS: CPK CREATINE PHOSPHOKINASE 44 U/L (34-145); MB/CK RELATIVE INDEX 2.27 (< OR =4)
[2024-04-30] MEDS: NS (Normal Saline) 0.9% 1,000 ML IV ONE (14:25)
[2024-04-30] MEDS ORDERED: ACETAMINOPHEN 325 MG TAB PO PRN (15:20)
[2024-04-30] MEDS ORDERED: BISACODYL 10MG SUPP PR PRN (15:20)
[2024-04-30] MEDS ORDERED: CALCIUM CARBONATE 500 MG CHEW U/D PO PRN (15:20)
[2024-04-30 17:10] VITALS: BP 141/57; TEMP 97.7; O2SAT 96
[2024-04-30] MEDS: FLEET OIL RETENTION ENEMA PR SCH (17:10)
[2024-04-30] MEDS: MIRALAX *UNIT DOSE* 17GM PACKET PO ONE (17:11)
[2024-04-30] MEDS: SUCRALFATE 1 GM TAB PO SCH (17:13)
[2024-04-30 20:42] VITALS: BP 122/67; TEMP 97.3; O2SAT 99
[2024-04-30] MEDS ORDERED: MAGNESIUM OXIDE 400MG TAB (MAG-OX) PO SCH (21:00)
[2024-04-30] MEDS ORDERED: MAGNESIUM OXIDE 400MG TAB (MAG-OX) PO PRN (21:00)
[2024-04-30] MEDS: MOM 30ML SUSPENSION UDC PO SCH (21:43)
[2024-04-30] MEDS: GABAPENTIN 100 MG CAP PO SCH (21:43)
[2024-04-30] MEDS: DOCUSATE SODIUM 100MG CAPSULE PO SCH (21:43)
[2024-04-30] MEDS: HEPARIN SOD (PORCINE) 5000UNITS/ML 1ML VIAL/SYRINGE SC SCH (21:44)
[2024-04-30] MEDS: POLYVINYL ALCOHOL OPHTH SOLN 15ML (LIQUITEARS) OU SCH (21:44)
[2024-04-30] MEDS: PRAVASTATIN 20 MG TAB PO SCH (21:44)
[2024-05-01 04:00] VITALS: BP 137/57; TEMP 97.5; O2SAT 96
[2024-05-01 06:59] LABS: CALCIUM LEVEL 10.2 MG/DL (8.3-10.6); CREATININE FOR GFR 2.49 MG/DL (0.55-1.30); GLOMERULAR FILTRATION RATE 19.4 (>32); POTASSIUM SERUM 4.9 MMOL/L (3.5-5.1)
[2024-05-01 08:58] VITALS: BP 130/59; TEMP 97.3; O2SAT 96
[2024-05-01] MEDS: CLOPIDOGREL 75 MG TAB PO SCH (09:02)
[2024-05-01] MEDS: CALCITRIOL 0.25 MCG CAP (S0169) PO SCH (09:03)
[2024-05-01] MEDS: PANTOPRAZOLE 40MG TAB (PROTONIX) PO SCH (09:03)
[2024-05-01] MEDS: ASPIRIN 81MG ENTERIC TABLET PO SCH (09:03)
[2024-05-01] MEDS: ISOSORBIDE MON. (IMDUR) 60MG XR TAB PO SCH (09:03)
[2024-05-01] MEDS: ESCITALOPRAM OXALATE 10 MG TAB (LEXAPRO) PO SCH (09:03)
[2024-05-01 12:00] VITALS: BP 127/51; TEMP 97.1; O2SAT 98
[2024-05-01] MEDS: LACTULOSE 20GM/30ML SYRUP UDC PO SCH (15:15)
[2024-05-01 20:17] VITALS: BP 135/56; TEMP 97.5; O2SAT 96
[2024-05-02 03:45] VITALS: BP 109/66; TEMP 97.7; O2SAT 96
[2024-05-02 08:42] VITALS: BP 152/65
[2024-05-02 12:00] VITALS: BP 107/56; TEMP 97.3; O2SAT 97
[2024-05-02] MEDS ORDERED: MAGN400T2 PO (12:01)
[2024-05-02] MEDS ORDERED: LACT20EL PO (12:01)
[2024-05-02] MEDS ORDERED: COLA100C5 PO (12:01)
== END 2024-05-02 13:17 ==
LOC: M ED 11:43 → M ED INP 11:44 → M MSPAV 17:04
PROVIDERS: ADMIT Student in an Organized Health Care Education/Training Program; ATTEND Student in an Organized Health Care Education/Training Program
DX: R00.1 Bradycardia, unspecified (principal); Z66 Do not resuscitate; N18.4 Chronic kidney disease, stage 4 (severe); I25.10 Atherosclerotic heart disease of native coronary artery without angina pectoris; R91.8 Other nonspecific abnormal finding of lung field; K21.9 Gastro-esophageal reflux disease without esophagitis; D35.00 Benign neoplasm of unspecified adrenal gland; I73.9 Peripheral vascular disease, unspecified; E11.51 Type 2 diabetes mellitus with diabetic peripheral angiopathy without gangrene; Z86.73 Personal history of transient ischemic attack (TIA), and cerebral infarction without residual deficits; I12.9 Hypertensive chronic kidney disease with stage 1 through stage 4 chronic kidney disease, or unspecified chronic kidney disease; E78.5 Hyperlipidemia, unspecified; Z96.651 Presence of right artificial knee joint; F32.A Depression, unspecified; K59.00 Constipation, unspecified; Z87.891 Personal history of nicotine dependence; R55 Syncope and collapse; R11.2 Nausea with vomiting, unspecified; Z79.82 Long term (current) use of aspirin; Z79.84 Long term (current) use of oral hypoglycemic drugs; Z79.899 Other long term (current) drug therapy; Z88.5 Allergy status to narcotic agent; Z91.013 Allergy to seafood; Z88.8 Allergy status to other drugs, medicaments and biological substances
CPT/HCPCS: 36415; 51702; 71045; 71250; 74176; 80047; 80048; 80076; 81001; 82150; 82550; 82553; 83605; 83690; 84145; 84484; 85025; 85610; 85730; 86850; 86900; 86901; 87040; 87426; 93005; 93041; 96361; 96372; 96374; 99285; G0378; J2405

== ENCOUNTER → 2024-05-01 | Outpatient (REF) | payer MEDICARE, MEDICAID ==
[~2024-05-01] MED LIST changes: +ARTIDRO4 OU; +BISA10SU4 PR; +CALC1CAP31 PO; +CALC500T61 PO; +COLA100C5 PO; +LACT20EL PO; +LEXA1TAB2 PO; +MOM30SS2 PO; +SUCR1TA PO
== END ==
PROVIDERS: ATTEND Physician Assistant
DX: D64.9 Anemia, unspecified (principal); Z53.9 Procedure and treatment not carried out, unspecified reason

== ENCOUNTER → 2024-05-08 | Outpatient (REF) | payer MEDICARE, MEDICAID ==
[2024-05-08 10:12] LABS: HEMATOCRIT 32.6 % (36.0-47.0); HEMOGLOBIN 9.9 g/dl (12.0-15.5); MEAN CORPUSCULAR HGB CONC 30.4 g/dl (32.0-36.5); MEAN CORPUSCULAR VOLUME 95.6 fl (80.0-96.0); PLATELET COUNT, AUTOMATED 251 10^3/uL (150-450); RED BLOOD COUNT 3.41 10^6/uL (4.00-5.40); WHITE BLOOD COUNT 6.5 10^3/uL (4.0-10.0)
[2024-05-08 10:37] LABS: CALCIUM LEVEL 9.8 MG/DL (8.3-10.6); CREATININE FOR GFR 2.51 MG/DL (0.55-1.30); GLOMERULAR FILTRATION RATE 19.3 (>32); POTASSIUM SERUM 4.4 MMOL/L (3.5-5.1)
== END ==
PROVIDERS: ATTEND Internal Medicine
DX: D64.9 Anemia, unspecified (principal)

== ENCOUNTER → 2024-05-15 | Outpatient (REF) | payer MEDICARE, MEDICAID ==
[2024-05-15 08:02] LABS: HEMATOCRIT 34.6 % (36.0-47.0); HEMOGLOBIN 10.4 g/dl (12.0-15.5); MEAN CORPUSCULAR HEMOGLOBIN 28.3 pg (27.0-33.0); MEAN CORPUSCULAR HGB CONC 30.1 g/dl (32.0-36.5); MEAN CORPUSCULAR VOLUME 94.3 fl (80.0-96.0); PLATELET COUNT, AUTOMATED 313 10^3/uL (150-450); RED BLOOD COUNT 3.67 10^6/uL (4.00-5.40); WHITE BLOOD COUNT 6.1 10^3/uL (4.0-10.0)
== END ==
PROVIDERS: ATTEND Internal Medicine
DX: D64.9 Anemia, unspecified (principal)

== ENCOUNTER → 2024-05-19 | Outpatient (REF) | payer MEDICARE, MEDICAID ==
[2024-05-19 08:00] LABS: BASO # 0.1 10^3/uL (0.0-0.2); BASO % 1.2 % (0.0-1.0); EOS # 0.3 10^3/uL (0.0-0.5); EOS % 6.2 % (0.0-3.0); HEMATOCRIT 31.4 % (36.0-47.0); HEMOGLOBIN 9.5 g/dl (12.0-15.5); LYMPH # 1.4 10^3/uL (1.5-5.0); LYMPH % 26.7 % (24.0-44.0); MEAN CORPUSCULAR HGB CONC 30.3 g/dl (32.0-36.5); MEAN CORPUSCULAR VOLUME 92.6 fl (80.0-96.0); MONO # 0.5 10^3/uL (0.0-0.8); MONO % 9.6 % (2.0-8.0); NEUTROPHILS # 2.9 10^3/uL (1.5-8.5); NEUTROPHILS % 55.9 % (36.0-66.0); PLATELET COUNT, AUTOMATED 328 10^3/uL (150-450); RED BLOOD COUNT 3.39 10^6/uL (4.00-5.40); WHITE BLOOD COUNT 5.1 10^3/uL (4.0-10.0)
[2024-05-19 08:21] LABS: CALCIUM LEVEL 10.5 MG/DL (8.3-10.6); CREATININE FOR GFR 2.51 MG/DL (0.55-1.30); GLOMERULAR FILTRATION RATE 19.3 (>32); PERCENT SATURATION 14.7 % (13.2-45.0); PHOSPHORUS LEVEL 3.7 MG/DL (2.4-5.1); POTASSIUM SERUM 4.9 MMOL/L (3.5-5.1); PTH INTACT 143.8 PG/ML (18.5-88.0)
== END ==
PROVIDERS: ATTEND Internal Medicine Nephrology
DX: N18.4 Chronic kidney disease, stage 4 (severe) (principal); D63.1 Anemia in chronic kidney disease; N25.81 Secondary hyperparathyroidism of renal origin; D50.9 Iron deficiency anemia, unspecified

== ENCOUNTER → 2024-05-22 | Outpatient (REF) | payer MEDICARE, MEDICAID ==
[2024-05-22 09:50] LABS: HEMATOCRIT 30.1 % (36.0-47.0); HEMOGLOBIN 9.2 g/dl (12.0-15.5); MEAN CORPUSCULAR HEMOGLOBIN 28.5 pg (27.0-33.0); MEAN CORPUSCULAR HGB CONC 30.6 g/dl (32.0-36.5); MEAN CORPUSCULAR VOLUME 93.2 fl (80.0-96.0); PLATELET COUNT, AUTOMATED 312 10^3/uL (150-450); RED BLOOD COUNT 3.23 10^6/uL (4.00-5.40); WHITE BLOOD COUNT 5.8 10^3/uL (4.0-10.0)
== END ==
PROVIDERS: ATTEND Internal Medicine
DX: D64.9 Anemia, unspecified (principal)

== ENCOUNTER 2024-05-29 14:47 | Observation (INO) | payer MEDICARE, MEDICAID ==
[~2024-05-29 14:47] MED LIST changes: -ACET650T15 PO; -AMLO1TAB24 PO; -DEBR6.5S4 AU; -ENSU-12 PO; -GLIP5TAB17 PO; -LACT10SO94 PO; -POLY510P14 PO; -SENN1TAB85 PO
[2024-05-29 15:53] LABS: BASO % 0.7 % (0.0-1.0); EOS # 0.2 10^3/uL (0.0-0.5); EOS % 3.1 % (0.0-3.0); HEMATOCRIT 28.9 % (36.0-47.0); HEMOGLOBIN 8.9 g/dl (12.0-15.5); LYMPH # 0.7 10^3/uL (1.5-5.0); LYMPH % 12.7 % (24.0-44.0); MEAN CORPUSCULAR HEMOGLOBIN 28.6 pg (27.0-33.0); MEAN CORPUSCULAR HGB CONC 30.8 g/dl (32.0-36.5); MEAN CORPUSCULAR VOLUME 92.9 fl (80.0-96.0); MONO # 0.3 10^3/uL (0.0-0.8); MONO % 6.2 % (2.0-8.0); NEUTROPHILS # 4.2 10^3/uL (1.5-8.5); NEUTROPHILS % 76.9 % (36.0-66.0); PLATELET COUNT, AUTOMATED 287 10^3/uL (150-450); RED BLOOD COUNT 3.11 10^6/uL (4.00-5.40); WHITE BLOOD COUNT 5.5 10^3/uL (4.0-10.0)
[2024-05-29 16:22] LABS: CALCIUM LEVEL 10.8 MG/DL (8.3-10.6); CREATININE FOR GFR 2.71 MG/DL (0.55-1.30); GLOMERULAR FILTRATION RATE 17.6 (>32); POTASSIUM SERUM 4.7 MMOL/L (3.5-5.1)
[2024-05-29] MEDS ORDERED: AMLO1TAB24 PO (16:30)
[2024-05-29] MEDS ORDERED: GLIP5TAB17 PO (16:30)
[2024-05-29] MEDS ORDERED: SENN1TAB85 PO (16:30)
[2024-05-29] MEDS ORDERED: ACET650T15 PO (16:30)
[2024-05-29] MEDS ORDERED: ENSU-12 PO (16:30)
[2024-05-29] MEDS ORDERED: DEBR6.5S4 AU (16:30)
[2024-05-29] MEDS ORDERED: HOME MED LIST COMPLETE! XX SCH (16:35)
[2024-05-29] MEDS ORDERED: ACETAMINOPHEN 325 MG TAB PO PRN (18:50)
[2024-05-29] MEDS ORDERED: BISACODYL 10MG SUPP PR PRN (18:50)
[2024-05-29] MEDS ORDERED: PRAVASTATIN 20 MG TAB PO SCH (21:00)
[2024-05-30] MEDS: PRAVASTATIN 20 MG TAB PO SCH (00:22)
[2024-05-30] MEDS: PANTOPRAZOLE 40MG TAB (PROTONIX) PO SCH (00:22)
[2024-05-30] MEDS: SENOKOT S TAB PO SCH (00:22)
[2024-05-30] MEDS: SUCRALFATE 1 GM TAB PO SCH (00:22)
[2024-05-30] MEDS: POLYVINYL ALCOHOL OPHTH SOLN 15ML (LIQUITEARS) OD SCH (00:23)
[2024-05-30] MEDS: MAGNESIUM OXIDE 400MG TAB (MAG-OX) PO SCH (00:23)
[2024-05-30] MEDS: GABAPENTIN 100 MG CAP PO SCH (00:23)
[2024-05-30 07:13] LABS: HEMATOCRIT 26.5 % (36.0-47.0); HEMOGLOBIN 8.2 g/dl (12.0-15.5); MEAN CORPUSCULAR HEMOGLOBIN 28.7 pg (27.0-33.0); MEAN CORPUSCULAR HGB CONC 30.9 g/dl (32.0-36.5); MEAN CORPUSCULAR VOLUME 92.7 fl (80.0-96.0); PLATELET COUNT, AUTOMATED 272 10^3/uL (150-450); RED BLOOD COUNT 2.86 10^6/uL (4.00-5.40); WHITE BLOOD COUNT 6.9 10^3/uL (4.0-10.0)
[2024-05-30 07:43] LABS: ALBUMIN 3.2 G/DL (3.2-5.2); ALKALINE PHOSPHATASE 87 U/L (35-104); ALT/SGPT < 9 U/L (7.0-40); AST/SGOT 10 U/L (<34); BILIRUBIN,TOTAL < 0.2 MG/DL (0.3-1.2); BLOOD UREA NITROGEN 85 MG/DL (9-23); CALCIUM LEVEL 10.7 MG/DL (8.3-10.6); CARBON DIOXIDE LEVEL 20 MMOL/L (20-31); CHLORIDE LEVEL 109 MMOL/L (98-107); CREATININE FOR GFR 2.62 MG/DL (0.55-1.30); GLOMERULAR FILTRATION RATE 18.3 (>32); GLUCOSE, FASTING 100 MG/DL (74-106); POTASSIUM SERUM 4.7 MMOL/L (3.5-5.1); SODIUM LEVEL 139 MMOL/L (136-145); TOTAL PROTEIN 6.5 G/DL (5.7-8.2)
[2024-05-30] MEDS ORDERED: amLODIPine 5 MG TAB PO SCH (09:00)
[2024-05-30] MEDS ORDERED: PILL CUTTER 1 EACH XX ONE (10:33)
[2024-05-30] MEDS: ESCITALOPRAM OXALATE 10 MG TAB (LEXAPRO) PO SCH (11:00)
[2024-05-30] MEDS: METOPROLOL SUCC *XL* 25MG TAB (TopROL *XL*) PO SCH (11:01)
[2024-05-30] MEDS ORDERED: AMLO1TAB24 PO (15:44)
[2024-05-30 15:45] VITALS: BP 162/69
[2024-05-30] MEDS: ISOSORBIDE MON. (IMDUR) 60MG XR TAB PO SCH (15:45)
[2024-05-30 16:45] VITALS: BP 162/69; TEMP 96.9; O2SAT 95
[2024-05-31] MEDS ORDERED: amLODIPine 5 MG TAB PO SCH (09:00)
[2024-05-31] MEDS ORDERED: CALC500T61 PO (13:12)
[2024-05-31] MEDS ORDERED: POLY510P14 PO (13:12)
[2024-05-31] MEDS ORDERED: LACT10SO94 PO (13:12)
== END 2024-05-30 16:41 ==
LOC: EDBD 14:47 → M ED 14:47 → M ED INP 14:48
PROVIDERS: ADMIT Student in an Organized Health Care Education/Training Program; ATTEND Student in an Organized Health Care Education/Training Program
DX: R55 Syncope and collapse (principal); S09.8XXA Other specified injuries of head, initial encounter; S60.811A Abrasion of right wrist, initial encounter; S60.812A Abrasion of left wrist, initial encounter; W18.12XA Fall from or off toilet with subsequent striking against object, initial encounter; Y92.121 Bathroom in nursing home as the place of occurrence of the external cause; Y93.9 Activity, unspecified; Y99.8 Other external cause status; I67.82 Cerebral ischemia; Z86.73 Personal history of transient ischemic attack (TIA), and cerebral infarction without residual deficits; G31.1 Senile degeneration of brain, not elsewhere classified; M47.812 Spondylosis without myelopathy or radiculopathy, cervical region; Z91.81 History of falling; K92.2 Gastrointestinal hemorrhage, unspecified; R00.1 Bradycardia, unspecified; I25.10 Atherosclerotic heart disease of native coronary artery without angina pectoris; N18.4 Chronic kidney disease, stage 4 (severe); I12.9 Hypertensive chronic kidney disease with stage 1 through stage 4 chronic kidney disease, or unspecified chronic kidney disease; I73.9 Peripheral vascular disease, unspecified; E11.51 Type 2 diabetes mellitus with diabetic peripheral angiopathy without gangrene; Z98.62 Peripheral vascular angioplasty status; Z96.651 Presence of right artificial knee joint; Z87.891 Personal history of nicotine dependence; Z88.5 Allergy status to narcotic agent; Z88.8 Allergy status to other drugs, medicaments and biological substances; Z91.013 Allergy to seafood; Z79.899 Other long term (current) drug therapy; Z79.82 Long term (current) use of aspirin; Z79.02 Long term (current) use of antithrombotics/antiplatelets; D64.9 Anemia, unspecified
CPT/HCPCS: 36415; 70450; 71045; 72125; 73521; 73552; 80048; 80053; 84484; 85025; 85027; 93005; 93041; 94760; 99285; G0378

== ENCOUNTER → 2024-05-29 | Outpatient (REF) | payer MEDICARE, MEDICAID ==
[~2024-05-29] MED LIST changes: +ACET650T15 PO; +AMLO1TAB24 PO; +DEBR6.5S4 AU; +ENSU-12 PO; +GLIP5TAB17 PO; +LACT10SO94 PO; +POLY510P14 PO; +SENN1TAB85 PO
[2024-05-29 09:24] LABS: HEMATOCRIT 28.4 % (36.0-47.0); HEMOGLOBIN 8.6 g/dl (12.0-15.5); MEAN CORPUSCULAR HEMOGLOBIN 28.7 pg (27.0-33.0); MEAN CORPUSCULAR HGB CONC 30.3 g/dl (32.0-36.5); MEAN CORPUSCULAR VOLUME 94.7 fl (80.0-96.0); PLATELET COUNT, AUTOMATED 272 10^3/uL (150-450); WHITE BLOOD COUNT 4.7 10^3/uL (4.0-10.0)
== END ==
PROVIDERS: ATTEND Internal Medicine
DX: D64.9 Anemia, unspecified (principal)

== ENCOUNTER 2024-05-31 10:45 | Observation (INO) | payer MEDICARE, MEDICAID ==
[~2024-05-31] VITALS: Ht 157.5 cm; Wt 48.1 kg
[~2024-05-31 10:45] MED LIST changes: +ACET650T15 PO; +AMLO1TAB24 PO; +DEBR6.5S4 AU; +ENSU-12 PO; +GLIP5TAB17 PO; +SENN1TAB85 PO
[2024-05-31 11:32] LABS: BASO # 0.1 10^3/uL (0.0-0.2); BASO % 0.9 % (0.0-1.0); EOS # 0.3 10^3/uL (0.0-0.5); HEMATOCRIT 24.7 % (36.0-47.0); HEMOGLOBIN 7.5 g/dl (12.0-15.5); LYMPH # 0.8 10^3/uL (1.5-5.0); LYMPH % 14.7 % (24.0-44.0); MEAN CORPUSCULAR HEMOGLOBIN 28.2 pg (27.0-33.0); MEAN CORPUSCULAR HGB CONC 30.4 g/dl (32.0-36.5); MEAN CORPUSCULAR VOLUME 92.9 fl (80.0-96.0); MONO # 0.4 10^3/uL (0.0-0.8); MONO % 7.1 % (2.0-8.0); NEUTROPHILS # 3.9 10^3/uL (1.5-8.5); NEUTROPHILS % 71.9 % (36.0-66.0); PLATELET COUNT, AUTOMATED 232 10^3/uL (150-450); RED BLOOD COUNT 2.66 10^6/uL (4.00-5.40); WHITE BLOOD COUNT 5.4 10^3/uL (4.0-10.0)
[2024-05-31 12:16] LABS: CALCIUM LEVEL 10.2 MG/DL (8.3-10.6); CREATININE FOR GFR 2.78 MG/DL (0.55-1.30); GLOMERULAR FILTRATION RATE 17.1 (>32); POTASSIUM SERUM 4.3 MMOL/L (3.5-5.1)
[2024-05-31 12:18] LABS: THYROID STIMULATING HORMONE 2.402 uIU/ML (0.55-4.78)
[2024-05-31] MEDS ORDERED: CALC500T61 PO (13:12)
[2024-05-31] MEDS ORDERED: POLY510P14 PO (13:12)
[2024-05-31] MEDS ORDERED: LACT10SO94 PO (13:12)
[2024-05-31] MEDS ORDERED: HOME MED LIST COMPLETE! XX SCH (13:15)
[2024-05-31] MEDS ORDERED: MAGNESIUM OXIDE 400MG TAB (MAG-OX) PO PRN (14:10)
[2024-05-31] MEDS ORDERED: BISACODYL 10MG SUPP PR PRN (14:10)
[2024-05-31] MEDS ORDERED: OYSTER SHELL CALCIUM 500 MG TAB PO PRN (14:10)
[2024-05-31] MEDS ORDERED: ACETAMINOPHEN 325 MG TAB PO PRN (14:10)
[2024-05-31] MEDS: SUCRALFATE 1 GM TAB PO SCH (16:58)
[2024-05-31] MEDS: ACETAMINOPHEN 650MG ER TAB (TYLENOL ARTHRITIS) PO SCH (16:58)
[2024-05-31 19:34] VITALS: BP 147/63; TEMP 96.7; O2SAT 97
[2024-05-31 19:57] VITALS: BP 157/67; TEMP 96.8; O2SAT 97
[2024-05-31 20:44] VITALS: BP 157/70; O2SAT 98
[2024-05-31 21:30] VITALS: BP 159/70; O2SAT 97
[2024-05-31 21:48] VITALS: BP 152/70; TEMP 96.7; O2SAT 96
[2024-05-31] MEDS: PANTOPRAZOLE 40MG TAB (PROTONIX) PO SCH (22:27)
[2024-05-31] MEDS: SENOKOT S TAB PO SCH (22:27)
[2024-05-31] MEDS: PRAVASTATIN 20 MG TAB PO SCH (22:28)
[2024-05-31] MEDS: POLYVINYL ALCOHOL OPHTH SOLN 15ML (LIQUITEARS) OU SCH (22:40)
[2024-05-31] MEDS: CARBAMIDE PEROXIDE 6.5% OTIC SOLN 15ML AU SCH (22:40)
[2024-06-01 06:50] LABS: HEMATOCRIT 28.5 % (36.0-47.0); MEAN CORPUSCULAR HEMOGLOBIN 27.6 pg (27.0-33.0); MEAN CORPUSCULAR HGB CONC 31.6 g/dl (32.0-36.5); MEAN CORPUSCULAR VOLUME 87.4 fl (80.0-96.0); PLATELET COUNT, AUTOMATED 263 10^3/uL (150-450); RED BLOOD COUNT 3.26 10^6/uL (4.00-5.40); WHITE BLOOD COUNT 6.2 10^3/uL (4.0-10.0)
[2024-06-01 07:00] VITALS: BP 160/69; O2SAT 98
[2024-06-01 08:00] VITALS: BP 149/65; TEMP 97; O2SAT 92
[2024-06-01 08:12] LABS: ALBUMIN 3.1 G/DL (3.2-5.2); ALKALINE PHOSPHATASE 85 U/L (35-104); ALT/SGPT < 9 U/L (7.0-40); AST/SGOT 9 U/L (<34); BILIRUBIN,TOTAL 0.3 MG/DL (0.3-1.2); BLOOD UREA NITROGEN 83 MG/DL (9-23); CALCIUM LEVEL 10.4 MG/DL (8.3-10.6); CARBON DIOXIDE LEVEL 19 MMOL/L (20-31); CHLORIDE LEVEL 109 MMOL/L (98-107); GLOMERULAR FILTRATION RATE 18.5 (>32); GLUCOSE, FASTING 95 MG/DL (74-106); POTASSIUM SERUM 4.3 MMOL/L (3.5-5.1); SODIUM LEVEL 138 MMOL/L (136-145); TOTAL PROTEIN 6.3 G/DL (5.7-8.2)
[2024-06-01 08:23] LABS: PROCALCITONIN 0.16 ng/ml
[2024-06-01 10:00] VITALS: BP 127/50; O2SAT 99
[2024-06-01 10:11] VITALS: BP 127/50
[2024-06-01] MEDS: MIRALAX *UNIT DOSE* 17GM PACKET PO SCH (10:11)
[2024-06-01] MEDS: amLODIPine 5 MG TAB PO SCH (10:11)
[2024-06-01 12:00] VITALS: BP 135/62; TEMP 96.8; O2SAT 98
[2024-06-01] MEDS: CALCITRIOL 0.25 MCG CAP (S0169) PO SCH (13:18)
== END 2024-06-01 15:45 ==
LOC: M ED 10:45 → EDBD 10:45 → M ED INP 12:39
PROVIDERS: ADMIT Student in an Organized Health Care Education/Training Program; ATTEND Student in an Organized Health Care Education/Training Program
DX: R55 Syncope and collapse (principal); R00.1 Bradycardia, unspecified; I95.9 Hypotension, unspecified; K92.2 Gastrointestinal hemorrhage, unspecified; D64.9 Anemia, unspecified; I25.10 Atherosclerotic heart disease of native coronary artery without angina pectoris; I73.9 Peripheral vascular disease, unspecified; I12.9 Hypertensive chronic kidney disease with stage 1 through stage 4 chronic kidney disease, or unspecified chronic kidney disease; Z86.73 Personal history of transient ischemic attack (TIA), and cerebral infarction without residual deficits; Z91.81 History of falling; N18.4 Chronic kidney disease, stage 4 (severe); E11.22 Type 2 diabetes mellitus with diabetic chronic kidney disease; Z88.5 Allergy status to narcotic agent; Z88.8 Allergy status to other drugs, medicaments and biological substances; Z91.013 Allergy to seafood; Z79.899 Other long term (current) drug therapy; Z66 Do not resuscitate
CPT/HCPCS: 36415; 36430; 70450; 71045; 80048; 80053; 83605; 84145; 84443; 84484; 85025; 85027; 86850; 86900; 86901; 86920; 93005; 93041; 94760; 97161; 99285; G0378; P9016

== ENCOUNTER → 2024-06-05 | Outpatient (REF) | payer MEDICARE, MEDICAID ==
[~2024-06-05] MED LIST changes: +LACT10SO94 PO; +POLY510P14 PO
[2024-06-05 11:47] LABS: HEMOGLOBIN 8.8 g/dl (12.0-15.5); MEAN CORPUSCULAR HEMOGLOBIN 27.8 pg (27.0-33.0); MEAN CORPUSCULAR HGB CONC 30.3 g/dl (32.0-36.5); MEAN CORPUSCULAR VOLUME 91.5 fl (80.0-96.0); PLATELET COUNT, AUTOMATED 267 10^3/uL (150-450); RED BLOOD COUNT 3.17 10^6/uL (4.00-5.40); WHITE BLOOD COUNT 5.2 10^3/uL (4.0-10.0)
[2024-06-05 12:23] LABS: FERRITIN 81.7 NG/ML (7.3-270.7)
[2024-06-05 12:27] LABS: CALCIUM LEVEL 10.1 MG/DL (8.3-10.6); CREATININE FOR GFR 3.06 MG/DL (0.55-1.30); GLOMERULAR FILTRATION RATE 15.3 (>32); POTASSIUM SERUM 4.3 MMOL/L (3.5-5.1)
== END ==
PROVIDERS: ATTEND Internal Medicine
DX: D64.9 Anemia, unspecified (principal)

== ENCOUNTER → 2024-06-07 | Outpatient (REF) | payer MEDICARE, MEDICAID ==
[2024-06-07 09:09] LABS: HEMATOCRIT 29.6 % (36.0-47.0); HEMOGLOBIN 8.9 g/dl (12.0-15.5); MEAN CORPUSCULAR HEMOGLOBIN 27.4 pg (27.0-33.0); MEAN CORPUSCULAR HGB CONC 30.1 g/dl (32.0-36.5); MEAN CORPUSCULAR VOLUME 91.1 fl (80.0-96.0); PLATELET COUNT, AUTOMATED 272 10^3/uL (150-450); RED BLOOD COUNT 3.25 10^6/uL (4.00-5.40); WHITE BLOOD COUNT 4.8 10^3/uL (4.0-10.0)
[2024-06-07 09:41] LABS: CREATININE FOR GFR 2.82 MG/DL (0.55-1.30); GLOMERULAR FILTRATION RATE 16.8 (>32); POTASSIUM SERUM 4.2 MMOL/L (3.5-5.1)
== END ==
PROVIDERS: ATTEND Physician Assistant
DX: D64.9 Anemia, unspecified (principal)

== ENCOUNTER → 2024-06-12 | Outpatient (REF) | payer MEDICARE, MEDICAID ==
[~2024-06-12] MED LIST changes: +ESCITALOPRAM
[2024-06-12 09:10] LABS: HEMATOCRIT 27.1 % (36.0-47.0); HEMOGLOBIN 8.4 g/dl (12.0-15.5); MEAN CORPUSCULAR VOLUME 90.3 fl (80.0-96.0); PLATELET COUNT, AUTOMATED 273 10^3/uL (150-450); WHITE BLOOD COUNT 6.2 10^3/uL (4.0-10.0)
[2024-06-12 09:29] LABS: CALCIUM LEVEL 10.4 MG/DL (8.3-10.6); CREATININE FOR GFR 2.63 MG/DL (0.55-1.30); GLOMERULAR FILTRATION RATE 18.2 (>32); POTASSIUM SERUM 4.3 MMOL/L (3.5-5.1)
== END ==
PROVIDERS: ATTEND Internal Medicine
DX: D64.9 Anemia, unspecified (principal)

== ENCOUNTER → 2024-06-12 | Outpatient (CLI) | payer MEDICARE, MEDICAID | LOC: M PLAIMG 09:58 | PROVIDERS: ATTEND Physician Assistant | DX: R91.1 Solitary pulmonary nodule (principal); J43.9 Emphysema, unspecified; D64.9 Anemia, unspecified ==

== ENCOUNTER → 2024-06-14 | Outpatient (REF) | payer MEDICARE, MEDICAID ==
[2024-06-14 09:41] LABS: HEMATOCRIT 33.6 % (36.0-47.0); HEMOGLOBIN 10.1 g/dl (12.0-15.5); MEAN CORPUSCULAR HEMOGLOBIN 27.4 pg (27.0-33.0); MEAN CORPUSCULAR HGB CONC 30.1 g/dl (32.0-36.5); MEAN CORPUSCULAR VOLUME 91.1 fl (80.0-96.0); PLATELET COUNT, AUTOMATED 321 10^3/uL (150-450); RED BLOOD COUNT 3.69 10^6/uL (4.00-5.40); WHITE BLOOD COUNT 6.9 10^3/uL (4.0-10.0)
[2024-06-14 10:04] LABS: CALCIUM LEVEL 10.5 MG/DL (8.3-10.6); CREATININE FOR GFR 2.61 MG/DL (0.55-1.30); GLOMERULAR FILTRATION RATE 18.4 (>32)
== END ==
PROVIDERS: ATTEND Physician Assistant
DX: D64.9 Anemia, unspecified (principal)

== ENCOUNTER → 2024-06-16 | Outpatient (CLI) | payer MEDICARE, MEDICAID | LOC: M EKG 10:43 | PROVIDERS: ATTEND Internal Medicine | DX: R55 Syncope and collapse (principal) ==

== ENCOUNTER → 2024-06-19 | Outpatient (REF) | payer MEDICARE, MEDICAID ==
[2024-06-19 08:57] LABS: HEMATOCRIT 29.5 % (36.0-47.0); HEMOGLOBIN 8.9 g/dl (12.0-15.5); MEAN CORPUSCULAR HGB CONC 30.2 g/dl (32.0-36.5); MEAN CORPUSCULAR VOLUME 92.8 fl (80.0-96.0); PLATELET COUNT, AUTOMATED 278 10^3/uL (150-450); RED BLOOD COUNT 3.18 10^6/uL (4.00-5.40)
== END ==
PROVIDERS: ATTEND Internal Medicine
DX: D64.9 Anemia, unspecified (principal)

== ENCOUNTER → 2024-06-23 | Outpatient (REF) | payer MEDICARE, MEDICAID | PROVIDERS: ATTEND Physician Assistant | DX: D64.9 Anemia, unspecified (principal); Z53.8 Procedure and treatment not carried out for other reasons ==

== ENCOUNTER → 2024-06-23 | Outpatient (REF) | payer MEDICARE, MEDICAID | PROVIDERS: ATTEND Physician Assistant | DX: D64.9 Anemia, unspecified (principal); Z53.8 Procedure and treatment not carried out for other reasons ==

== ENCOUNTER → 2024-06-23 | Outpatient (REF) | payer MEDICARE, MEDICAID | PROVIDERS: ATTEND Internal Medicine | DX: D64.9 Anemia, unspecified (principal); Z53.8 Procedure and treatment not carried out for other reasons ==

== ENCOUNTER → 2024-06-23 | Outpatient (REF) | payer MEDICARE, MEDICAID | PROVIDERS: ATTEND Physician Assistant | DX: D64.9 Anemia, unspecified (principal); Z53.8 Procedure and treatment not carried out for other reasons ==

== ENCOUNTER → 2024-06-23 | Outpatient (REF) | payer MEDICARE, MEDICAID | PROVIDERS: ATTEND Internal Medicine | DX: D64.9 Anemia, unspecified (principal); Z53.8 Procedure and treatment not carried out for other reasons ==

== ENCOUNTER → 2024-06-23 | Outpatient (REF) | payer MEDICARE, MEDICAID | PROVIDERS: ATTEND Physician Assistant | DX: D64.9 Anemia, unspecified (principal); Z53.8 Procedure and treatment not carried out for other reasons ==